=== PATIENT | male | born 1945 | race Caucasian/White ===

== ENCOUNTER → 2019-10-25 | Emergency (ER) | payer MEDICARE ==
[~2019-10-25] VITALS: Ht 193 cm; Wt 104.3 kg
[~2019-10-25] MED LIST: LIPITOR40 MG PO; LISINOPRIL20 MG PO
--- NOTE | 2019-10-26 06:46 | EKG ---
[facility] [address] [place], [place] [address] Signed Sinus tachycardia with 2nd degree AV block (Mobitz I) Right bundle branch block Left anterior fascicular block Bifascicular block Septal infarct , age undetermined Abnormal ECG No previous ECGs available Confirmed by TSERING FABIAN MD ([id number]) on 10/26/2019 6:46:36 AM Electronically Signed By: TSERING FABIAN MD 10/26/19 0646 PATIENT NAME: DIANA LOWERY Electrocardiogram DATE OF : 41 PHYSICIAN: TSERING FABIAN MD REPORT #: [id number] REPORT IS CONFIDENTIAL AND NOT TO BE RELEASED WITHOUT AUTHORIZATION
--- NOTE | 2019-10-26 06:47 | EKG ---
[facility] [address] [place] [address] Signed Sinus bradycardia with 1st degree AV block with premature supraventricular complexes Left axis deviation Right bundle branch block Minimal voltage criteria for LVH, may be normal variant Septal infarct (cited on or before 25-OCT-2019) Abnormal ECG When compared with ECG of 25-OCT-2019 23:56, (Unconfirmed) premature supraventricular complexes are now present Sinus rhythm is no longer with 2nd degree AV block (Mobitz I) Vent. rate has decreased BY 31 BPM Questionable change in initial forces of Septal leads Confirmed by TSERING FABIAN MD ([id number] on 10/26/2019 6:47:16 AM Electronically Signed By: TSERING FABIAN MD 10/26/19 0647 PATIENT NAME: DIANA LOWERY Electrocardiogram DATE OF : 41 PHYSICIAN: TSERING FABIAN MD REPORT #: [id number] REPORT IS CONFIDENTIAL AND NOT TO BE RELEASED WITHOUT AUTHORIZATION
== END ==
LOC: ED 23:47
DX: I21.4 Non-ST elevation (NSTEMI) myocardial infarction (principal); Z87.891 Personal history of nicotine dependence; Z79.899 Other long term (current) drug therapy
CPT/HCPCS: 71045; 71046; 80053; 83735; 84484; 85025; 93005; 93010; 99285-25

== ENCOUNTER 2019-12-03 07:41 | Emergency (ER) | payer MEDICARE ==
[~2019-12-03] VITALS: Ht 193 cm; Wt 104.3 kg
--- OUTSIDE RECORDS SUMMARY | ~2019-12-03 | XMS | Clinical Summary ---
Demographics + + + | Address | [address] | | | [place] [address] | + + + | Home Phone | | + + + | Preferred Language | Unknown | + + + | Marital Status | Unknown | + + + | Gnosticism Affiliation | 1073 | + + + | Race | Unknown | + + + | Ethnic Group | Unknown | + + + Author + + + | Author | [facility] | | | and [place] | + + + | Organization | [facility] | | | and [place] | + + + | Address | Unknown | + + + | Phone | Unavailable | + + + Support + + + + + | Name | Relationship | Address | Phone | + + + + + | Nixon Bello | ECON | [address] | | | | | [place] | | | | | [address] | | + + + + + Care Team Providers + +------+ + | Care Cardiothoracic Surgeon Name | Role | Phone | + +------+ + | Trell Osborne MD | PCP | | + +------+ + Allergies No Known Allergies Medications + + + +---------+------+------+-------+ | Medication | Sig | Dispensed | Refills | Star | End | Statu | | | | | | t | Date | s | | | | | | Date | | | + + + +---------+------+------+-------+ | aspirin 81 mg | Chew and swallow 1 | 30 | 3 | 05/2 | | Activ | | chewable tablet | tablet Daily. | tablet | | 5/20 | | e | | | | | | 20 | | | + + + +---------+------+------+-------+ | atorvaSTATin | Take 1 tablet by | 30 | 3 | 05/2 | | Activ | | (LIPITOR) 80 MG | mouth nightly. | tablet | | 5/20 | | e | | tablet | | | | 20 | | | + + + +---------+------+------+-------+ | clopidogrel | Take 1 tablet by | 30 | 3 | 05/2 | | Activ | | (PLAVIX) 75 mg | mouth Daily. | tablet | | 5/20 | | e | | tablet | | | | 20 | | | + + + +---------+------+------+-------+ | amLODIPine | Take 1 tablet by | 30 | 3 | 05/2 | | Activ | | (NORVASC) 10 MG | mouth Daily. | tablet | | 5/20 | | e | | tablet | | | | 20 | | | + + + +---------+------+------+-------+ Active Problems + + + | Problem | Noted Date | + + + | NSTEMI (non-ST elevated myocardial infarction) | 10/26/2019 | + + + | Essential hypertension | 10/26/2019 | + + + | Other hyperlipidemia | 10/26/2019 | + + + | Alzheimer's dementia without behavioral disturbance | 10/26/2019 | + + + Encounters +--------+ + + + + | Date | Type | Specialty | Care Team | Description | +--------+ + + + + | 11/04/ | Telephone | Cardiology | Diego Garg MD | | | 2019 | | | | | +--------+ + + + + | 10/31/ | Telephone | Cardiology | Diego Garg MD | Other (medication | | 2019 | | | | and bruising) | +--------+ + + + + | 10/29/ | Imaging | Radiology | Damaris, | | | 2019 | Exam | | MD Stephania | | +--------+ + + + + | 10/29/ | Imaging | Radiology | Provider, | | | 2019 | Exam | | MD Stephania | | +--------+ + + + + | 10/28/ | Telephone | Cardiology | Diego Garg MD | Other (plan of care) | | 2019 | | | | | +--------+ + + + + | 10/26/ | Surgery | Cardiology | Diego Garg MD | CV COR ANGIO | 2019 | | | | | +--------+ + + + + 10/25/ | Hospital | Critical Care | Diogo, | NSTEMI (non-ST | | 2019 - | Encounter | Medicine | MD Forest Sr, | elevated myocardial | | | | | Diego Daniel MD | infarction) (HCC) | | 10/27/ | | | | (Primary Dx); Other | 2019 | | | | hyperlipidemia; | | | | | | Essential | | | | | | hypertension; | | | | | | Alzheimer's dementia | | | | | | without behavioral | | | | | | disturbance, | | | | | | unspecified timing | | | | | | of dementia onset | | | | | | (HCC) | +--------+ + + + + from Last 3 Months Social History + +-------+ +--------+------+ | Tobacco Use | Types | Packs/Day | Years | Date | | | | | Used | | + +-------+ +--------+------+ | Former Smoker | | | | | + +-------+ +--------+------+ + +---+---+---+ | Smokeless Tobacco: | | | | | Never Used | | | | + +---+---+---+ + + +---------+ + | Alcohol Use | Drinks/Week | oz/Week | Comments | + + +---------+ + | Not Currently | | | | + + +---------+ + + + + | Sex Assigned at | Date Recorded | | | | + + + | Not on file | | + + + Last Filed Vital Signs + + + + + | Vital Sign | Reading | Time Taken | Comments | + + + + + | Blood Pressure | 149/71 | 10/28/2019 11:34 AM | | | | | PDT | | + + + + + | Pulse | 50 | 10/28/2019 7:42 AM | | | | | PDT | | + + + + + | Temperature | 36.4 C (97.5 F) | 10/28/2019 11:34 AM | | | | | PDT | | + + + + + | Respiratory Rate | 18 | 10/28/2019 7:42 AM | | | | | PDT | | + + + + + | Oxygen Saturation | 96% | 10/28/2019 11:34 AM | | | | | PDT | | + + + + + | Inhaled Oxygen | - | - | | | Concentration | | | | + + + + + | Weight | 94.5 kg (208 lb 5.4 | 10/28/2019 3:46 AM | | | | oz) | PDT | | + + + + + | Height | - | - | | + + + + + | Body Mass Index | - | - | | + + + + + Plan of Treatment + + + + + | Health Maintenance | Due Date | Last | Comments | | | | Done | | + + + + + | Vaccine: | | | | | Pneumococcal 65+ (1 | 8 | | | | of 1 - PPSV23) | | | | + + + + + | Vaccine: Zoster (2 | | 04/22/20 | | | of 3) | 4 | 13 | | + + + + + | Adult Annual | | | | | Wellness Visit | 0 | | | + + + + + | Vaccine: | | 08/18/19 | | | Dtap/Tdap/Td (3 - | 8 | 18, | | | Td) | | 02/24/20 | | | | | 07 | | + + + + + | Vaccine: Influenza | Completed | 03/06/20 | | | | | 19, | | | | | 07/04/19 | | | | | 19, | | | | | 02/23/20 | | | | | 17, | | | | | Addition | | | | | al | | | | | history | | | | | exists | | + + + + + Implants + +-------+------+ +--------+--------+--------+ | Implanted | Type | Area | Manufacture | Device | Shelf | Model | | | | | r | | Expira | / | | | | | | Identi | tion | Serial | | | | | | fier | Date | / Lot | + +-------+------+ +--------+--------+--------+ | Stent Kevin Synergy Mr 3.0 X 20 | Stent | | [place] | [id number] | 02/03/ | [id number] | | - [id number]: Qty: | | | SCIENTIFIC | [id number] | 2020 | [id number] | | 1 on 10/27/2019 by [facility], | | | TAM - BSCI | 76 | | 00 / | | Diego Daniel MD at [facility] | | | | | | /[id number] | | [facility] | | | | | | [facility] | | [facility] | | | | | | | + +-------+------+ +--------+--------+--------+ Procedures + +--------+ + + + | Procedure Name | Priori | Date/Time | Associated Diagnosis | Comments | | | ty | | | | + +--------+ + + + | ECG - EXTERNAL SCAN | | 11/01/2019 | | Results for this | | | | 12:00 AM | | procedure are in the | | | | PDT | | results section. | + +--------+ + + + | ECG 12 LEAD | Routin | 10/28/2019 | | Results for this | | | e | 4:37 AM | | procedure are in the | | | | PDT | | results section. | + +--------+ + + + | CBC NO DIFFERENTIAL | Routin | 10/28/2019 | | Results for this | | | e | 3:34 AM | | procedure are in the | | | | PDT | | results section. | + +--------+ + + + | BASIC METABOLIC | Routin | 10/28/2019 | | Results for this | | PANEL | e | 3:34 AM | | procedure are in the | | | | PDT | | results section. | + +--------+ + + + | ECG 12 LEAD | Routin | 10/27/2019 | | Results for this | | | e | 3:09 PM | | procedure are in the | | | | PDT | | results section. | + +--------+ + + + | CV CARDIAC PROCEDURE | Routin | 10/27/2019 | | Results for this | | | e | 12:39 PM | | procedure are in the | | | | PDT | | results section. | + +--------+ + + + | CV CARDIAC PROCEDURE | Routin | 10/27/2019 | | Results for this | | | e | 12:39 PM | | procedure are in the | | | | PDT | | results section. | + +--------+ + + + | CV CARDIAC PROCEDURE | Routin | 10/27/2019 | | Results for this | | | e | 12:39 PM | | procedure are in the | | | | PDT | | results section. | + +--------+ + + + | CV CARDIAC PROCEDURE | Routin | 10/27/2019 | | Results for this | | | e | 12:39 PM | | procedure are in the | | | | PDT | | results section. | + +--------+ + + + | POC ACTIVATED | Routin | 10/27/2019 | | Results for this | | CLOTTING TIME ISTAT | e | 12:12 PM | | procedure are in the | | | | PDT | | results section. | + +--------+ + + + | PROTIME INR | Routin | 10/27/2019 | | Results for this | | | e | 8:10 AM | | procedure are in the | | | | PDT | | results section. | + +--------+ + + + | LVEF VALUE | Routin | 10/27/2019 | | Results for this | | | e | | | procedure are in the | | | | | | results section. | + +--------+ + + + | TROPONIN I | Routin | 10/26/2019 | | Results for this | | | e | 9:53 AM | | procedure are in the | | | | PDT | | results section. | + +--------+ + + + | ECG 12 LEAD | Routin | 10/26/2019 | | Results for this | | | e | 7:37 AM | | procedure are in the | | | | PDT | | results section. | + +--------+ + + + | MAGNESIUM | Add-On | 10/26/2019 | | Results for this | | | | 5:25 AM | | procedure are in the | | | | PDT | | results section. | + +--------+ + + + | COMPREHENSIVE | Add-On | 10/26/2019 | | Results for this | | METABOLIC PANEL | | 5:25 AM | | procedure are in the | | | | PDT | | results section. | + +--------+ + + + | HEMOGLOBIN A1C | Routin | 10/26/2019 | | Results for this | | | e | 5:25 AM | | procedure are in the | | | | PDT | | results section. | + +--------+ + + + | LIPID PANEL | Routin | 10/26/2019 | | Results for this | | | e | 5:25 AM | | procedure are in the | | | | PDT | | results section. | + +--------+ + + + | TROPONIN I | Routin | 10/26/2019 | | Results for this | | | e | 5:25 AM | | procedure are in the | | | | PDT | | results section. | + +--------+ + + + | XR CHEST 2 VIEWS | Routin | 10/26/2019 | | Results for this | | | e | 12:05 AM | | procedure are in the | | | | PDT | | results section. | + +--------+ + + + | XR CHEST 1 VIEW | Routin | 10/26/2019 | | Results for this | | | e | 12:00 AM | | procedure are in the | | | | PDT | | results section. | + +--------+ + + + from Last 3 Months Results ECG - EXTERNAL SCAN (11/01/2019 12:00 AM PDT) + + + | Narrative | Performed At | + + + | Ordered by an | | | unspecified provider. | | + + + ECG 12 lead (10/28/2019 4:37 AM PDT)Only the most recent of 3 results within the time jayy od is included. + + + + + + | Component | Value | Ref Range | Performed | Pathologist | | | | | At | Signature | + + + + + + | VENTRICULAR | 58 | BPM | [facility] | | | RATE EKG | | | | | + + + + + + | ATRIAL RATE | 68 | BPM | [facility] | | + + + + + + | QRS | 148 | ms | [facility] | | | DURATION | | | | | + + + + + + | Q-T | 486 | ms | [facility] | | | INTERVAL | | | | | + + + + + + | Q-T | 477 | ms | [facility] | | | INTERVAL | | | | | | (CORRECTED) | | | | | + + + + + + | QRS AXIS | -65 | degrees | [facility] | | + + + + + + | T AXIS | 12 | degrees | [facility] | | + + + + + + | INTERPRETAT | Sinus rhythm with 2nd | | [facility] | | | ION TEXT | degree AV block (Mobitz | | | | | | I)Right bundle branch | | | | | | blockLeft anterior | | | | | | fascicular blockAbnormal | | | | | | ECGWhen compared with | | | | | | ECG of 27-OCT-2019 | | | | | | 15:09, (Unconfirmed)T | | | | | | wave inversion now | | | | | | evident in Inferior | | | | | | leadsConfirmed by | | | | | | BRISEIDA SHAH MD ([id number]) | | | | | | on 10/28/2019 6:50:08 AM | | | | + + + + + + + + | Specimen | + + | | + + + + + | Narrative | Performed At | + + + | | | + + + + +---------+ + + | Performing | Address | City/State/Zipcode | Phone Number | | Organization | | | | + +---------+ + + | [facility] | | | | + +---------+ + + CBC no Differential (10/28/2019 3:34 AM PDT) + +-------+ + + + | Component | Value | Ref Range | Performed | Pathologist | | | | | At | Signature | + +-------+ + + + | WBC | 10.4 | 4.0 - 11.0 K/uL | [facility] | | | | | | [facility] | | | | | | [facility] | | | | | | [facility] - | | | | | | LABORATORY | | + +-------+ + + + | RBC | 5.04 | 4.30 - 5.70 | [facility] | | | | | M/uL | [facility] | | | | | | MED[facility] | | | | | | CENTER - | | | | | | LABORATORY | | + +-------+ + + + | Hemoglobin | 14.8 | 13.5 - 18.0 | [facility] | | | | | g/dL | [facility] | | | | | | MEDICAL | | | | | | CENTER - | | | | | | LABORATORY | | + +-------+ + + + | Hematocrit | 45.7 | 40.0 - 51.0 % | [facility] | | | | | | [facility] | | | | | | [facility]ICAL | | | | | | CENTER - | | | | | | LABORATORY | | + +-------+ + + + | MCV | 90.7 | 83.0 - 101.0 fL | [facility] | | | | | | [facility] | | | | | | [facility]ICAL | | | | | | CENTER - | | | | | | LABORATORY | | + +-------+ + + + | MCH | 29.4 | 28.0 - 35.0 pg | [facility] | | | | | | [facility] | | | | | | [facility]ICAL | | | | | | CENTER - | | | | | | LABORATORY | | + +-------+ + + + | MCHC | 32.4 | 32.0 - 36.0 | [facility] | | | | | g/dL | [facility] | | | | | | MEDICAL | | | | | | CENTER - | | | | | | LABORATORY | | + +-------+ + + + | RDW-CV | 13.4 | <15.0 % | [facility] | | | | | | [facility] | | | | | | [facility]ICAL | | | | | | CENTER - | | | | | | LABORATORY | | + +-------+ + + + | RDW-SD | 45.2 | 35.1 - 46.3 fL | [facility] | | | | | | [facility] | | | [facility] | | [facility] | | | | | | CENTER - | | | | | | LABORATORY | | + +-------+ + + + | Platelet | 191 | 140 - 440 K/uL | [facility] | | | Count | | | [facility] | | | | | | MEDICAL | | | | | | CENTER - | | | | | | LABORATORY | | + +-------+ + + + | MPV | 12.2 | 6.5 - 12.4 fL | [facility] | | | | | | [facility] | | | | | | [facility] | | | | | | CENTER - | | | | | | LABORATORY | | + +-------+ + + + | % nRBC | 0 | 0 - 2 per 100 | [facility] | | | | | WBCs | [facility] | | | | | | [facility]ICAL | | | | | | CENTER - | | | | | | LABORATORY | | + +-------+ + + + | Absolute | 0.00 | 0.00 - 0.01 | [facility] | | | nRLE[facility] | | K/uL | [facility] | | | | | | MEDICAL | | | | | | CENTER - | | | | | | LABORATORY | | + +-------+ + + + + + | Specimen | + + | Blood | + + + + + + + | Performing | Address | City/State/Zipcode | Phone Number | | Organization | | | | + + + + + | [facility] | [address] | [place] | [phone] | | [facility] | | [address] | | | - LABORATORY | | | | + + + + + Basic Metabolic Panel (10/28/2019 3:34 AM PDT) + + + + + + | Component | Value | Ref Range | Performed | Pathologist | | | | | At | Signature | + + + + + + | Na | 140 | 136 - 145 | [facility] | | | | | mmol/L | [facility] | | | | | | MEDICAL | | | | | | CENTER - | | | | | | LABORATORY | | + + + + + + | K | 4.0 | 3.4 - 5.1 | [facility] | | | | | mmol/L | [facility] | | | | | | MEDICAL | | | | | | CENTER - | | | | | | LABORATORY | | + + + + + + | Cl | 103 | 98 - 107 mmol/L | [facility] | | | | | | [facility] | | | | | | MEDICAL | | | | | | CENTER - | | | | | | LABORATORY | | + + + + + + | CO2 | 29 | 20 - 31 mmol/L | [facility] | | | | | | [facility] | | | | | | MEDICAL | | | | | | CENTER - | | | | | | LABORATORY | | + + + + + + | Anion Gap | 8 | 3 - 16 mmol/L | [facility] | | | | | | [facility] | | | | | | MEDICAL | | | | | | CENTER - | | | | | | LABORATORY | | + + + + + + | Glucose | 91 | 60 - 106 mg/dL | [facility] | | | | | | [facility] | | | | | | MEDICAL | | | | | | CENTER - | | | | | | LABORATORY | | + + + + + + | BUN | 16 | 9 - 23 mg/dL | [facility] | | | | | | [facility] | | | | | | MEDICAL | | | | | | CENTER - | | | | | | LABORATORY | | + + + + + + | Creatinine | 1.08 | 0.70 - 1.30 | [facility] | | | | | mg/dL | [facility] | | | | | | MEDICAL | | | | | | CENTER - | | | | | | LABORATORY | | + + + + + + | eGFR if not | >60Comment: GLOMERULAR | >=60 | [facility] | | | | FILTRATION | mL/min/1.73m2 | [facility] | | | DJ[facility] | RATE,ESTIMATED | | MEDICAL | | | | mL/min/1.92b4Niml than | | CENTER - | | | | 60 Chronic kidney | | LABORATORY | | | | disease,if found over a | | | | | | 3-month period.Less than | | | | | | 15 Kidney failureFor | | | | | | | | | | | | Americans,multiply the | | | | | | calculated GFR by 1.21. | | | | | | | | | | + + + + + + | Calcium | 9.4 | 8.7 - 10.4 | [facility] | | | | | mg/dL | [facility] | | | | | | MEDICAL | | | | | | CENTER - | | | | | | LABORATORY | | + + + + + + | BUN/Creatin | 14.8 | | [facility] | | | ine Ratio | | | [facility] | | | | | | MEDICAL | | | | | | CENTER - | | | | | | LABORATORY | | + + + + + + + + | Specimen | + + | Blood | + + + + + + + | Performing | Address | City/State/Zipcode | Phone Number | | Organization | | | | + + + + + | [facility] | [address] | [place] | [phone] | | [facility] | | [address] | | | - LABORATORY | | | | + + + + + CV CARDIAC PROCEDURE (10/27/2019 12:39 PM PDT) + +-------+ + + + | Component | Value | Ref Range | Performed | Pathologist | | | | | At | Signature | + +-------+ + + + | LVEF-LVGRAM | 50 | % | [facility] | | | CARDIAC | | | | | | CATH | | | | | + +-------+ + + + + + | Specimen | + + | | + + + + + | Narrative | Performed At | + + + | Patient | [facility] | | admitted with chest pains and increasing troponins. No associated | | | EKG changes. He does have some second-degree heart block. Radial | | | approach was used. Patient had mild irregularity and left dominant | | | system. 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 Left ventriculogram showed normal LV | | | function. LVEDP was elevated to high 20s by report. Intervention | | | using a 305 20 Synergy postdilated with a 3 5 NC balloon to 0%. | | | There is transient distal slow flow post deployment of the stent | | | resolved with medications. She had conscious sedation achieved with | | | medications administered by the [employer] Helper nurse under my supervision. | | | TR band was used for hemostasis the radial access site. No | | | complications encountered. For additional detail as to the | | | procedures performed and the equipment that was utilized, please refer | | | to the Procedure Log. | | | | | | | | |For additional detail as to the procedures performed and the equipment | | |that was utilized, please refer to the Procedure Log. | | | | | | | | | | | | | | | | | | | | | | | | | | | | | | | | | | | + + + + +---------+ + + | Performing | Address | City/State/Zipcode | Phone Number | | Organization | | | | + +---------+ + + | [facility] | | | | + +---------+ + + POC ACT (10/27/2019 12:12 PM PDT) + + + + + + | Component | Value | Ref Range | Performed | Pathologist | | | | | At | Signature | + + + + + + | Activated | >400 (HH) | 125 - 175 | [facility] | | | Clotting | | second(s) | [facility] | | | Time, POC | | | MEDICAL | | | | | | CENTER - | | | | | | LABORATORY | | + + + + + + + + | Specimen | + + | | + + + + + + + | Performing | Address | City/State/Zipcode | Phone Number | | Organization | | | | + + + + + | [facility] | [address] | [place] | [phone] | | [facility] | | [address] | | | - LABORATORY | | | | + + + + + Chadime INR (10/27/2019 8:10 AM PDT) + + + + + + | Component | Value | Ref Range | Performed | Pathologist | | | | | At | Signature | + + + + + + | Prothrombin | 14.2 (H) | 11.3 - 13.9 | [facility] | | | Time | | seconds | [facility] | | | | | | MEDICAL | | | | | | CENTER - | | | | | | LABORATORY | | + + + + + + | INR | 1.0Comment: Usual Oral | 0.9 - 1.1 | [facility] | | | | Anticoagulation Range: | | [facility] | | | | 2.0 - 3.0High | | MEDICAL | | | | Level Oral | | CENTER - | | | | Anticoagulation Range: | | LABORATORY | | | | 2.5 - 3.5 | | | | + + + + + + + + | Specimen | + + | Blood | + + + + + + + | Performing | Address | City/State/Zipcode | Phone Number | | Organization | | | | + + + + + | [facility] | [address] | [place] | [phone] | | [facility] | | [address] | | | - LABORATORY | | | | + + + + + LVEF VALUE (10/27/2019) + +-------+ + + + | Component | Value | Ref Range | Performed | Pathologist | | | | | At | Signature | + +-------+ + + + | LVEF-LVGRAM | 50 | % | | | | CARDIAC | | | | | | CATH | | | | | + +-------+ + + + Troponin I (10/26/2019 9:53 AM PDT)Only the most recent of 2 results within the time perio d is included. + + + + + + | Component | Value | Ref Range | Performed | Pathologist | | | | | At | Signature | + + + + + + | Troponin I | 2.20 ()Comment: | <0.06 ng/mL | [facility] | | | | Comment:Reference | | [facility] | | | | Ranges: 0.00-0.06 = | | MEDICAL | | | | NORMAL >0.06 = | | CENTER - | | | | SUSPICIOUS FOR | | LABORATORY | | | | MYOCARDIAL DAMAGE NOTE: | | | | | | Values greater than | | | | | | 0.78 ng/mL have been | | | | | | shown to be strongly | | | | | | associated with acute | | | | | | myocardial infarction. | | | | | | The [employer] | | | | | | Cardiology (ACC) | | | | | | recommends a decision | | | | | | limit of 0.06 ng/mL for | | | | | | this assay. Results | | | | | | greater than 0.06 can | | | | | | reflect a pre-infarct | | | | | | acute coronary syndrome, | | | | | | but can also reflect | | | | | | myocardial necrosis or | | | | | | injury that is not due | | | | | | to coronary artery | | | | | | disease. Some of these | | | | | | causes are sepsis, | | | | | | hypocolemia, atrial | | | | | | fibrillation, heart | | | | | | failure, pulmonary | | | | | | embolism, myocarditis, | | | | | | myocardial contusion, | | | | | | and renal failure. The | | | | | | diagnosis of myocardial | | | | | | infarction should be | | | | | | based on a combination | | | | | | of the patient's | | | | | | clinical presentation | | | | | | and the clinical | | | | | | laboratory test results | | | | | | (especially serial | | | | | | troponin levels). | | | | | | Critical Result called | | | | | | to and read back by | | | | | | Artur Andrew RN on | | | | | | 10/26/2019 at 10:27 AM by | | | | | | Yuliya Del Real. | | | | + + + + + + + + | Specimen | + + | Blood | + + + + + + + | Performing | Address | City/State[facility] | Phone Number | | Organization | | | | + + + + + | [facility] | [address] | [place] | [phone] | | [facility] | | [address] | | | - LABORATORY | | | | + + + + + Lipid Panel (10/26/2019 5:25 AM PDT) + +--------+ + + + | Component | Value | Ref Range | Performed | Pathologist | | | | | At | Signature | + +--------+ + + + | Triglycerid | 42 | <=150 mg/dL | [facility] | | | es | | | [facility] | | | | | | [facility] | | | | | | CENTER - | | | | | | LABORATORY | | + +--------+ + + + | Cholesterol | 186 | <=200 mg/dL | [facility] | | | | | | [facility] | | | | | | MEDICAL | | | | | | CENTER - | | | | | | LABORATORY | | + +--------+ + + + | HDL | 68 (H) | 40 - 60 mg/dL | [facility] | | | | | | [facility] | | | | | | MEDICAL | | | | | | CENTER - | | | | | | LABORATORY | | + +--------+ + + + | Chol/HDL | 2.7 | | [facility] | | | Ratio | | | [facility] | | | | | | MEDICAL | | | | | | CENTER - | | | | | | LABORATORY | | + +--------+ + + + | LDL, | 110 | <=130 mg/dL | [facility] | | | Calculated | | | [facility] | | | | | | MEDICAL | | | | | | CENTER - | | | | | | LABORATORY | | + +--------+ + + + + + | Specimen | + + | Blood | + + + + + + + | Performing | Address | City/State/Zipcode | Phone Number | | Organization | | | | + + + + + | [facility] | [address] | [place] | [phone] | | [facility] | | [address] | | | - LABORATORY | | | | + + + + + Magnesium (10/26/2019 5:25 AM PDT) + +-------+ + + + | Component | Value | Ref Range | Performed | Pathologist | | | | | At | Signature | + +-------+ + + + | Magnesium | 2.0 | 1.6 - 2.6 mg/dL | [facility] | | [facility] | | | | | | [facility] - | | | | | | LABORATORY | | + +-------+ + + + + + | Specimen | + + | Blood | + + + + + + + | Performing | Address | City/State/Zipcode | Phone Number | | Organization | | | | + + + + + | [facility] | [address] | [place] | [phone] | | [facility] | | [address] | | | - LABORATORY | | | | + + + + + Hemoglobin A1C (10/26/2019 5:25 AM PDT) + +-------+ + + + | Component | Value | Ref Range | Performed | Pathologist | | | | | At | Signature | + +-------+ + + + | Hemoglobin | 5.6 | 4.3 - 6.0 % | [facility] | | | A1c | | | [facility] | | | | | | [facility] | | | | | | CENTER - | | | | | | LABORATORY | | + +-------+ + + + | Estimated | 114 | mg/dL | [facility] | | | Average | | | [facility] | | | Glucose | | | MEDICAL | | | | | | CENTER - | | | | | | LABORATORY | | + +-------+ + + + + + | Specimen | + + | Blood | + + + + + + + | Performing | Address | City/State/Zipcode | Phone Number | | Organization | | | | + + + + + | [facility] | [address] | [place] | [phone] | | [facility] | | [address] | | | - LABORATORY | | | | + + + + + Comprehensive Metabolic Panel (10/26/2019 5:25 AM PDT) + + + + + + | Component | Value | Ref Range | Performed | Pathologist | | | | | At | Signature | + + + + + + | Na | 140 | 136 - 145 | [facility] | | | | | mmol/L | [facility] | | | | [facility] - | | | | | | LABORATORY | | + + + + + + | K | 4.0 | 3.4 - 5.1 | [facility] | | | | | mmol/L | [facility] | | | | | | [facility] | | | | | | [facility] - | | | | | | LABORATORY | | + + + + + + | Cl | 105 | 98 - 107 mmol/L | [facility] | | | | | | [facility] | | | | | | [facility] | | | | | | [facility] - | | | | | | LABORATORY | | + + + + + + | CO2 | 26 | 20 - 31 mmol/L | [facility] | | | | | | [facility] | | | | | | [facility] | | | | | | [facility] - | | | | | | LABORATORY | | + + + + + + | Anion Gap | 9 | 3 - 16 mmol/L | [facility] | | | | | | [facility] | | | | | | [facility] | | | | | | C[facility] - | | | | | | LABORATORY | | + + + + + + | Glucose | 102 | 60 - 106 mg/dL | [facility] | | | | | | [facility] | | | | | | [facility] | | | | | | [facility] - | | | | | | LABORATORY | | + + + + + + | BUN | 21 | 9 - 23 mg/dL | [facility] | | | | | | [facility] | [facility] | [facility] | | [facility] | | | | | | [facility] - | | | | | | LABORATORY | | + + + + + + | Creatinine | 1.13 | 0.70 - 1.30 | [facility] | | | | | mg/dL | [facility] | | | | | | [facility] | | | | | | CENTER - | | | | | | LABORATORY | | + + + + + + | eGFR if not | >60Comment: GLOMERULAR | >=60 | [facility] | | | | FILTRATION | mL/min/1.73m2 | [facility] | | | [facility] | RATE,ESTIMATED | | MEDICAL | | | | mL/min/1.47j2Shmc than | | CENTER - | | | | 60 Chronic kidney | | LABORATORY | | | | disease,if found over a | | | | | | 3-month period.Less than | | | | | | 15 Kidney failureFor | | | | | | | | | | | | Americans,multiply the | | | | | | calculated GFR by 1.21. | | | | | | | | | | + + + + + + | Calcium | 10.1 | 8.7 - 10.4 | [facility] | | | | | mg/dL | [facility] | | [facility] | [facility] | | | | | | CENTER - | | | | | | LABORATORY | | + + + + + + | Albumin | 4.3 | 3.2 - 4.8 g/dL | [facility] | | | | | | [facility] | | | | | | [facility] | | | | | | CENTER - | | | | | | LABORATORY | | + + + + + + | Bilirubin | 0.6 | 0.3 - 1.2 mg/dL | [facility] | | | Total | | | [facility] | | | | | | [facility] | | | | | | CENTER - | | | | | | LABORATORY | | + + + + + + | Total | 7.2 | 5.7 - 8.2 g/dL | [facility] | | | Protein | | | [facility] | | | | | | MEDICAL | | | | | | CENTER - | | | | | | LABORATORY | | + + + + + + | AST | 20 | 0 - 34 U/L | [facility] | | | | | | [facility] | | | | | | [facility] | | | | | | CENTER - | | | | | | LABORATORY | | + + + + + + | ALT | 18 | 10 - 49 U/L | [facility] | | | | | | [facility] | | | | | | [facility] | | | | | | CENTER - | | | | | | LABORATORY | | + + + + + + | Alkaline | 69 | 46 - 116 U/L | [facility] | | | Phosphatase | | | [facility] | | | | | | [facility]ICAL | | | | | | CENTER - | | | | | | LABORATORY | | + + + + + + | Globulin | 2.9 | 2.1 - 3.8 g/dL | [facility] | | | | | | [facility] | | | | | | [facility]ICAL | | | | | | CENTER - | | | | | | LABORATORY | | + + + + + + | Albumin/Yi | 1.5 | 0.8 - 1.9 | [facility] | | | bulin Ratio | | | [facility] | | | | | | [facility]ICAL | | | | | | CENTER - | | | | | | LABORATORY | | + + + + + + | BUN/Creatin | 18.6 | | [facility] | | | ine Ratio | | | [facility] | | | | | | MEDICAL | | | | | | CENTER - | | | | | | LABORATORY | | + + + + + + + + | Specimen | + + | Blood | + + + + + + + | Performing | Address | City/State/Zipcode | Phone Number | | Organization | | | | + + + + + | [facility] | [address] | [place] | [phone] | | [facility] | | [address] | | | - LABORATORY | | | | + + + + + XR Chest 2 Vws (10/26/2019 12:05 AM PDT) + + | Specimen | + + | | + + + + + | Narrative | Performed At | + + + | External films for comparison only | [facility] | | | | | No results will be in the chart. | | + + + + +---------+ + + | Performing | Address | City/State/Zipcode | Phone Number | | Organization | | | | + +---------+ + + | [facility] | | | | + +---------+ + + XR Chest 1 Vw (10/26/2019 12:00 AM PDT) + + | Specimen | + + | | + + + + + | Narrative | Performed At | + + + | External films for comparison only | [facility] | | | | | No results will be in the chart. | | + + + + +---------+ + + | Performing | Address | City/State/Zipcode | Phone Number | | Organization | | | | + +---------+ + + | [facility] | | | | + +---------+ + + from Last 3 Months Insurance + +--------+ +--------+ +---------+--------+ | Payer | Benefi | Subscriber | Effect | Phone | Address | Type | | | t Plan | ID | sree | | | | | | / | | Dates | | | | | | Group | | | | | | + +--------+ +--------+ +---------+--------+ | [employer] | [place] | [id number] | 06/05/19 | [phone] | | [place] | | | [place] | | 20-Pre | 7 | | re | | | GROUP | | sent | | | | | | HEALTH | | | | | | | | MDCR | | | | | | | | VISITI | | | | | | | | NG | | | | | | | | MEMBER | | | | | | | | S | | | | | | + +--------+ +--------+ +---------+--------+ + +--------+ +--------+ + + | Guarantor Name | Accoun | Relation to | Date | Phone | Billing Address | | | t Type | Patient | of | | | | | | | | | | + +--------+ +--------+ + + | Robin Dumont I | Person | Self [birth year] | [address] | | | al/Fam | | 1945 | [phone] | [place] [address] | | | keagan | | | 6 (Home) | | + +--------+ +--------+ + + Advance Directives + + + + + | Type | Date Recorded | Patient | Explanation | | | | 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
--- OUTSIDE RECORDS SUMMARY | ~2019-12-03 | XMS | Encounter Summary ---
Demographics + + + | Address | [address] | | | [place] [address] | + + + | Home Phone | | + + + | Preferred Language | Unknown | + + + | Marital Status | Unknown | + + + | Mosque Affiliation | 1073 | + + + | Race | Unknown | + + + | Ethnic Group | Unknown | + + + Author + + + | Author | [facility] | | | and [place] | + + + | Organization | [facility] | | | and [place] | + + + | Address | Unknown | + + + | Phone | Unavailable | + + + Support + + + + + | Name | Relationship | Address | Phone | + + + + + | Nixon Bello | ECON | [address] [facility] | | | | | [place] | | | | | [address] | | + + + + + Care Team Providers + +------+ + | Care Detailer [employer]aceuticals Name | Role | Phone | + +------+ + | Trell Osborne MD | PCP | | + +------+ + Encounter Details +--------+ + + + + | Date | Type | Department | Care Team | Description | +--------+ + + + + | 10/29/ | Imaging | [facility] | Provider, | | | 2019 | Exam | [facility] | MD [phone] | | | | | IMAGING [address] | [address] [place] | | | | | [address] [place] | [place] [address] | | | | | [place] [address] | | | | | | [phone] | | | +--------+ + + + + Social History + +-------+ +--------+------+ | Tobacco [...] on file | | + + + documented as of this encounter Plan of Treatment Not on filedocumented as of this encounter Procedures + +--------+ + + + | [...] section. | + +--------+ + + + documented in this encounter Results XR Chest 1 Vw (10/26/2019 12:00 AM [...] | | | + +---------+ + + documented in this encounter Visit Diagnoses Not on filedocumented in this encounter"
--- OUTSIDE RECORDS SUMMARY | ~2019-12-03 | XMS | Encounter Summary ---
Demographics + + + | Address | [address] | | | [place] [address] | + + + | Home Phone | | + + + | Preferred Language | Unknown | + + + | Marital Status | Unknown | + + + | Mormonism Affiliation | 1073 | + + + | Race | Unknown | + + + | Ethnic Group | Unknown | + + + Author + + + | Author | [facility] | | | and [place] | + + + | Organization | [facility] | | | and [place] | + + + | Address | Unknown | + + + | Phone | Unavailable | + + + Support + + + + + | Name | Relationship | Address | Phone | + + + + + | Nixon Bello | ECON | [address] [facility] | | | | | [place] | | | | | [address] | | + + + + + Care Team Providers + +------+ + | Care Preschool Teacher Name | Role | Phone | + [...] | [facility] | MD [address] | | | | | IMAGING [address] | [address] | | | | | [address] [place] | [place] [address] | | | | | [place] [address] | | | | | | [phone] | | | +--------+ + + + [...] documented in this encounter Results XR Chest 2 Vws (10/26/2019 12:05 AM [...]
--- OUTSIDE RECORDS SUMMARY | ~2019-12-03 | XMS | Encounter Summary ---
Demographics + + + | Address | [address] | | | [place] [address] | + + + | Home Phone | | + + + | Preferred Language | Unknown | + + + | Marital Status | Unknown | + + + | Orthodoxy Affiliation | 1073 | + + + | Race | Unknown | + + + | Ethnic Group | Unknown | + + + Author + + + | Author | [facility] | | | and [place] | + + + | Organization | [facility] | | | and [place] | + + + | Address | Unknown | + + + | Phone | Unavailable | + + + Support + + + + + | Name | Relationship | Address | Phone | + + + + + | Nixon Bello | ECON | [address] [facility] | | | | | [place] | | | | | [address] | | + + + + + Care Team Providers + +------+ + | Care Manager Pharmacy Name | Role | Phone | + +------+ + | Trell Osborne MD | PCP | | + +------+ + Reason for Referral Diagnostic/Screening (Routine) + +--------+ + + + + | Status | Reason | Specialty | Diagnoses / | Referred By | Referred To | | | | | Procedures | Contact | Contact | + +--------+ + + + + | Authorized | | Radiology | Diagnoses | Lia Garg | | | | | Heart block | Diego Daniel MD | Electrodiagno | | | | | Procedures | [address] | [address] | | | | | Holter | [address] | [place] | | | | | monitor - [address] | [place], | [place], [place] | | | | | hour | [place] [address] | [address] | | | | | | Phone: | Phone: | | | | | | [phone] | [phone] | | | | | | Fax: | Fax: | | | | | | [phone] | [phone] | + +--------+ + + + + Reason for Visit +--------+--------+ + | Reason | Onset | Comments | | | Date | | +--------+--------+ + | Other | 10/28/ | plan of care | | | 2019 | | +--------+--------+ + Encounter Details +--------+ + + + + | Date | Type | Department | Care Team | Description | +--------+ + + + + | 10/28/ | Telephone | [facility] | Diego Garg MD | Other (plan of care) | | 2019 | | CARDIOLOGY [address] | [address] | | | | | [place], | [place], [place] | | | | | [place] [address] | [address] | | | | | [phone] | | | +--------+ + + + [...] + + documented as of this encounter Functional Status + + + + | Functional Status | Response | Date of Assessment | + + + + | Are you deaf or do you have serious | No | 10/28/2019 | | difficulty hearing? | | | + + + + | Are you blind or do you have serious | No | 10/28/2019 | | difficulty seeing, even when wearing | | | | glasses? | | | + + + + | Do you have serious difficulty walking or | No | 10/28/2019 | | climbing stairs? (5 years old or older) | | | + + + + | Do you have difficulty dressing or bathing? | No | 10/28/2019 | | (5 years old or older) | | | + + + + | Because of a physical, mental, or emotional | Yes | 10/28/2019 | | condition, do you have difficulty doing | | | | errands alone such as visiting a doctor's | | | | office or shopping? [15 years old or | | | | older)] | | | + + + + + + + + | Cognitive Status | Response | Date of Assessment | + + + + | Because of a physical, mental, or emotional | Yes | 10/28/2019 | | condition, do you have serious difficulty | | | | concentrating, remembering, or making | | | | decisions? (5 years old or older) | | | + + + + documented as of this encounter Miscellaneous Notes Telephone Encounter - Deneen Vasquez - 10/30/2019 11:03 AM Otilia spoke with william serrato's son Nixon who is POA. He stated due to patients insurance and being out of network, edison draper has requested patient to be seen by a [employer] Manager they recommend. Per Nixon he will b e setting up an appt soon with a [employer] Manager covered by patients insurance. elephone Encounter - Vanesa Mcelroy RN - 10/29/2019 7:[address] Dr Garg, patient was in the hospital over the we ekend and has been discharged. He will need a follow up with him in the office in about 2 w eeks with holter prior. Holter has been ordered. I will ask PSR's to please coordinate bot h appointments with the patient. ...........................................Vanesa Meclroy RN, on 10/29/19 at 7:31 AM documented in this encounter Plan of Treatment + +------+--------+ + + | Name | Type | Priori | Associated Diagnoses | Order Schedule | | | | ty | | | + +------+--------+ + + | Holter monitor - 48 | ECG | Routin | Heart block | Expected: 10/29/2019 | | hour | | e | | (Approximate), | | | | | | Expires: 10/28/2020 | + +------+--------+ + + documented as of this encounter Visit Diagnoses + + | Diagnosis | + + | Heart block - Primary Conduction disorder, unspecified | + + documented in this encounter"
--- OUTSIDE RECORDS SUMMARY | ~2019-12-03 | XMS | Encounter Summary ---
Demographics + + + | Address | [address] | | | [place] [address] | + + + | Home Phone | | + + + | Preferred Language | Unknown | + + + | Marital Status | Unknown | + + + | Denominational Affiliation | [id number] | + + + | Race | Unknown | + + + | Ethnic Group | Unknown | + + + Author + + + | Author | [facility] | | | and [place] | + + + | Organization | [facility] | | | and [place] | + + + | Address | Unknown | + + + | Phone | Unavailable | + + + Support + + + + + | Name | Relationship | Address | Phone | + + + + + | Nixon Bello | ECON | [address] | | | | | [place] | | | | | [address] | | + + + + + Care Team Providers + +------+ + | Care Locomotive Driver Name | Role | Phone | + +------+ + | Trell Osborne MD | PCP | | + +------+ + Reason for Visit Auth/Cert +--------+--------+ + + + + | Status | Reason | Specialty | Diagnoses / | Referred By | Referred To | | | | | Procedures | Contact | Contact | +--------+--------+ + + + + | | | | Diagnoses | | | | | | | NSTEMI | | | +--------+--------+ + + + + Encounter Details +--------+---------+ + + + | Date | Type | Department | Care Team | Description | +--------+---------+ + + + | 10/26/ | Surgery | [facility] | Diego Garg MD | CV COR ANGIO | | 2019 | | MED CTR [facility] | [address] | | | | | [address] | [place] | | | | | [place] | [phone] | | | | | [id number] | | | | | | [phone] | | | +--------+---------+ + + + Social History + +-------+ [...] + + documented as of this encounter Last Filed Vital Signs + + + + + | Vital Sign | Reading | Time Taken | Comments | + + + + + | Blood Pressure | 162/75 | 10/27/2019 7:11 AM | | | | | PDT | | + + + + + | Pulse | 50 | 10/27/2019 7:11 AM | | | | | PDT | | + + + + + | Temperature | 36.1 C (97 F) | 10/27/2019 7:11 AM | | | | | PDT | | + + + + + | Respiratory Rate | 18 | 10/27/2019 7:11 AM | | | | | PDT | | + + + + + | Oxygen Saturation | 98% | 10/27/2019 7:11 AM | | | | | PDT | | + + + + + | Inhaled Oxygen | - | - | | | Concentration | | | | + + + + + | Weight | 97 kg (213 lb 13.5 | 10/26/2019 9:35 PM | | | | oz) | PDT | | + + + + + | Height | - | - | | + + + + + | Body Mass Index | - | - | | + + + + + documented in this encounter Functional Status + + + [...] + + documented as of this encounter Discharge Summaries Diego Garg MD - 10/28/2019 9:09 AM PDT DISCHARGE SUMMARY PATIENT NAME/: Robin Dumont, (1945) DATE OF ADMISSION: 10/26/2019 DATE OF DISCHARGE: 10/28/2019 ADMITTING DIAGNOSIS: NSTEMI (non-ST elevated myocardial infarction) ([facility]) PRIMARY CARE PROVIDER: Trell Osborne MD DISCHARGE DIAGNOSES: NSTEMI with high-grade mid PDA lesion. 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 Radial approach was used. Patient had mild irregularity and left dominant system. Right c oronary was large and the mid RCA PDA, there is a discrete 90% stenosis. Left ventriculogra m showed normal LV function. LVEDP was elevated to high 20s by report. Intervention using a 305 20 Synergy postdilated with a 3 5 NC balloon to 0%. There is torres sient distal slow flow post deployment of the stent resolved with medications. OTHER FINDINGS OF NOTE: He given a heart block without significant pauses SUMMARY OF HISTORY AND PHYSICAL: Referral from outside hospital and found to have significa nt elevation of troponins. SUMMARIZED HOSPITAL COURSE: Patient is admitted because of chest pains on referral from [facility]. Elevated troponins prompted heart catheterization showed his coronary dise ase that was treated without complications. DISCHARGE EXAM: General: Healthy-appearing gentleman with some memory difficulties. Heart - regular rate and rhythm, S1 and S2 normal, no murmur, rub, or gallop. Lungs - clear to auscultation bilaterally Neurologic - Grossly normal. MEDS: Discharge Medications New Medications Details amLODIPine 10 MG tablet Take 1 tablet by mouth Daily. aka: NORVASC aspirin 81 mg chewable tablet Chew and swallow 1 tablet Daily. atorvaSTATin 80 MG tablet Take 1 tablet by mouth nightly. aka: LIPITOR clopidogrel 75 mg tablet Take 1 tablet by mouth Daily. aka: PLAVIX PATIENT INSTRUCTIONS: Activity: Activity as tolerated Diet: cardiac diet Other instructions: Discharge Instructions Alzheimer Disease Alzheimer disease is a brain illness that can happen usually in older adults, but it can al so happen as early as age 40. It is the most common cause of dementia. It is a progressive d isease. This means it gets worse over time. What is Alzheimer disease? Alzheimer disease causes a series of changes to nerves of the brain. Some nerves form into clumps and tangles, and lose some of their connections to other nerves. Healthcare providersdon t fully understand what causes Alzheimer disease. But they thin k these may be some of the causes: Age and family history Certain genes Abnormal protein deposits in the brain Environmental factors Problems with a person s immune system Possibly infections Symptoms of Alzheimer disease The disease causes changes in behavior and thinking known as dementia. The symptoms include : Memory loss Confusion Restlessness Personality and behavior changes Problems with judgment Problems communicating with others Inability to follow directions Lack of emotion Diagnosing Alzheimer disease No single test is able to diagnose Alzheimer disease. Instead healthcare providers use a se [place] of tests to rule out other health conditions. The tests may include: A complete medical history.This may include questions about overall health and past he alth problems. The healthcare provider may ask how well the person can do daily tasks. [facility] provider may ask family or close friends about any changes in behavior or personal ity. Mental status test. This is a test of memory, problem solving, attention, counting, and language. Standard medical tests.These may include blood and urine tests to find possible causes for the problem. Brain imaging tests. CT, MRI, or positron emission tomography (PET) may be used to rul e out other causes of the problem. Treating Alzheimer disease Alzheimer disease has no cure. Instead healthcare providers can help ease some symptoms. Th is can make a person with Alzheimer more comfortable. Treatment can also make it easier for their caregivers to take care of them. Some medicines may help slow the decline of a person s memory, thinking, and language ski lls. They may help with problems of behavior, such as aggression. They can lessen hallucinat ions and delusions. These medicines can work for some but not all people. And they may help for only a limited time. Medicines include: Cholinesterase inhibitors Donepezil Galantamine Rivastigmine Memantine In some cases, behavior problems can be caused by medicine side effects. Talk with the pers on s healthcare provider about all medicines he or she is taking. Keeping healthy For a person with Alzheimer, it s important to stay healthy. Good nutrition and physical and social activity are vital. A calm and well-structured environment will help. Make sure t o keep up with healthcare appointments and managing other health conditions, such as diabete s. Some people benefit from having a refractive surgeon help to prevent weight loss. Caring for someone with Alzheimer A person with Alzheimer will need more caregiving over time. Talk with your healthcare prov ider about caregiving resources. Date Last Reviewed: 09/03/[id number] [employer]. [address] [place] [address]. All righ ts reserved. This information is not intended as a substitute for professional medical care. Always follow your healthcare professional's instructions. Angioplasty and Stent Placement for the Heart What is angioplasty? Angioplasty, also called percutaneous coronary intervention (PCI), is a procedure used to o pen blocked coronary arteries (caused by coronary artery disease). It restores blood flow to the heart muscle without open-heart surgery. Angioplasty can be done in an emergency settin g such as an acute heart attack or in an elective setting when heart disease is strongly eda pected from non-invasive testing. For angioplasty, a special catheter (a long, thin, hollow tube) is inserted into a blood ve ssel and guided to the blocked coronary artery. The catheter has a tiny balloon at its tip. Once the catheter is in place, the balloon is inflated at the narrowed area of the coronary artery. This presses the plaque or blood clot blocking the artery against the sides of the a rtery making more room for blood flow. The use of fluoroscopy (a special type of X-ray that s like an X-ray "movie") helps the d octor find the blockages in the coronary arteries as a contrast dye moves through the arteri es. This is called coronary angiography. The doctor may determine that another type of procedure is necessary. This may include the use of atherectomy (removal of plaque) at the site of the narrowing of the artery. In athere ctomy, there may be tiny blades on a balloon or a rotating tip at the end of the catheter. W hen the catheter reaches the narrowed spot in the artery, the plaque is broken up or cut ramses y to open the artery. Stents Coronary stents are now used in nearly all angioplasty procedures. A stent is a tiny, expan dable, metal mesh coil that is put into the newly-opened area of the artery to help keep the artery from narrowing or closing again. Once the stent has been placed, tissue will start to form over it within a few days after t he procedure. The stent will be completely covered by scar tissue within a month or so. Medi cines called antiplatelets must be taken to decrease the "stickiness" of platelets (special blood cells that clump together to stop bleeding), and to prevent blood clots from forming i nside the stent. Your doctor will give specific instructions on which medicines need to be t aken and for how long. Most stents are coated with medicine to prevent the formation of too much scar tissue insid e the stent. These stents, called drug-eluting stents, or JIMI, release medicine within the b lood vessel that inhibits the overgrowth of tissue within the stent. This helps deter re- na rrowing of the blood vessel. Some stents do not have this medicine coating and are called bare metal stents or BMS. They may have higher rates of stenosis but do not require long-term use of antiplatelet medicine s. This may be the preferred stent in people who are at high risk of bleeding. Because stents can become blocked, it is important for you to talk with your doctor about w hat you need to do if you have chest pain after a stent placement. If scar tissue does form inside the stent, a repeat procedure may be needed. This may be us ing either balloon angioplasty or with a second stent. In some cases, radiation therapy may be given through a catheter placed near the scar tissue to stop the growth of scar tissue an d open up the vessel. This is called brachytherapy. Why might I need angioplasty? Angioplasty is done to restore coronary artery blood flow when the narrowed artery is in a location that can be reached in this manner. Not all coronary artery disease (CAD) can be tr eated with angioplasty. Your doctor will decide the best way to treat your CAD based on your circumstances. What are the risks of angioplasty? Possible risks associated with angioplasty, stenting, atherectomy, and related procedures i nclude, but are not limited to: Bleeding at the site where the catheter is put into the body (usually the groin, wrist, or arm) Blood clot or damage to the blood vessel from the catheter Blood clot within the treated blood vessel Infection at the catheter insertion site Abnormal heart rhythms Heart attack Stroke Chest pain or discomfort Rupture of the coronary artery or complete closing of the coronary artery, requiring ope n-heart surgery Allergic reaction to the contrast dye used Kidney damage from the contrast dye You may want to ask your doctor about the amount of radiation used during the procedure and the risks related to your particular situation.It is a good idea to keep a record of your radiation exposure, such as previous scans and other types of X-rays, so that you can infor m your doctor. Risks associated with radiation exposure may be related to the cumulative num tom of X-rays or treatments over a long period. For some people, having to lie still on the procedure table for the length of the procedure may cause some discomfort or pain. There may be other risks depending on your specific medical condition. Be sure to discuss a ny concerns with your doctor before the procedure. How do I get ready for angioplasty? Your doctor will explain the procedure to you and you can ask questions. You will be asked to sign a consent form that gives your permission to do the procedure. Read the form carefully and ask questions if anything is unclear. Tell your doctor if you have ever had a reaction to any contrast dye, or if you are oumar rgic to iodine. Tell your doctor if you are sensitive to or are allergic to any medicines, latex, tape, and anesthetic agents (local and general). You will need to fast (not eat or drink) for a certain period before the procedure. Your doctor will tell you how long to fast, whether for a few hours or overnight. Tell your doctor if you are or think you could be. Radiation exposure during pr egnancy may lead to defects. Tell your doctor if you have any body piercings on your chest or abdomen (belly). Tell your doctor of all medicines (prescription and [id number]), vitamins, herbs, and supplements that you are taking. Tell your doctor if you have a history of bleeding disorders or if you are taking any an ticoagulant or antiplatelet (blood-thinning) medicines, aspirin, or other medicines that aff ect blood clotting. You may need to stop some of these medicines before the procedure. Howev er, for planned angioplasty procedures, your doctor may want you to continue taking aspirin and antiplatelet medicines, so be sure to ask. Your doctor may request a blood test before the procedure to determine how long it takes your blood to clot. Other blood tests may be done as well. Tell your doctor if you have a pacemaker or other implanted device. You may get a sedative before the procedure to help you relax. Based on your medical condition, your doctor may request other specific preparation. What happens during angioplasty? Angioplasty may be done as part of your stay in a hospital. Procedures may vary depending o n your condition and your doctor's practices. Most people who undergo angioplasty and stent placement are monitored overnight in the hospital. Generally, angioplasty follows this process: 1. You will be asked to remove any jewelry or other objects that may interfere with the pro cedure. You may wear your dentures or hearing aid if you use either of these. 2. You will be asked to remove your clothing and will be given a gown to wear. 3. You will be asked to empty your bladder before the procedure. 4. If there is a lot of hair at the area of the catheter insertion (often the groin area), the hair may be shaved off. 5. An intravenous (IV) line will be started in your hand or arm before the procedure. It wi ll be used for injection of medicine and to give IV fluids, if needed. 6. You will be placed on your back on the procedure table. 7. You will be connected to an electrocardiogram (ECG) monitor that records the electrical activity of your heart and monitors your heart rate using electrodes that stick to your skin . Your vital signs (heart rate, blood pressure, breathing rate, and oxygen level) will be mo nitored during the procedure. 8. There will be several monitor screens in the room, showing your vital signs, the images of the catheter being moved through your body into your heart, and the structures of your he art as the dye is injected. 9. You will get a sedative in your IV to help you relax. However, you will likely stay awak e during the procedure. 10. Your pulses below the catheter insertion site will be checked and marked so that the ci rculation to the limb below the site can easily be checked during and after the procedure. 11. A local anesthetic will be injected into the skin at the insertion site. You may feel s ome stinging at the site for a few seconds after the local anesthetic is injected. 12. Once the local anesthetic has taken effect, a sheath, or introducer, will be put into t he blood vessel (often at the groin). This is a plastic tube through which the catheter will be threaded into the blood vessel and advanced into the heart. 13. The catheter will be threaded through the sheath into the blood vessel. The doctor will advance the catheter through the aorta into the heart. Fluoroscopy (an X-ray movie ) w ill be used to help see the catheter advance into the heart. 14. The catheter will be threaded into the coronary arteries. Once the catheter is in place , contrast dye will be injected through the catheter into your coronary arteries in order to see the narrowed area(s). You may feel some effects when the contrast dye is injected into the IV line. These effects include a flushing sensation, a salty or metallic taste in the mo uth, or a brief headache. These effects usually last only a few moments. 15. Tell your doctor if you feel any breathing trouble, sweating, numbness, itching, nausea or vomiting, chills, or heart palpitations. 16. After the contrast dye is injected, a series of rapid X-ray images of the heart and cor onary arteries will be taken. You may be asked to take in a deep breath and hold it for a fe w seconds during this time. 17. When the doctor locates the narrowed artery, the catheter will be advanced to that loca tion and the balloon will be inflated to open the artery. You may have some chest pain or di scomfort at this point because the blood flow is temporarily blocked by the inflated balloon . Any chest discomfort or pain should go away when the balloon is deflated. However, if you notice any continued discomfort or pain, such as chest pain, neck or jaw pain, back pain, ar m pain, shortness of breath, or breathing trouble, tell your doctor right away. 18. The doctor may inflate and deflate the balloon several times. The decision may be made at this point to put in a stent to keep the artery open. In some cases, the stent may be put into the artery before the balloon is inflated. Then the inflation of the balloon will open the artery and fully expand the stent. 19. The doctor will take measurements, pictures, or angiograms after the artery has been op ened. Once it has been determined that the artery is opened sufficiently, the catheter will be removed. 20. The sheath or introducer is taken out and the insertion site may be closed with a closu re device that uses collagen to seal the opening in the artery, by the use of sutures, or by applying manual pressure over the area to keep the blood vessel from bleeding. Your doctor will decide which method is best for you. 21. If a closure device is used, a sterile dressing will be applied to the site. If manual pressure is used, the doctor (or an housekeeping assistant) will hold pressure on the insertion site so t hat a clot will form on the outside of the blood vessel to prevent bleeding. Once the bleedi ng has stopped, a very tight bandage will be placed on the site. 22. Staff will help you slide from the table onto a stretcher so that you can be taken to [facility] recovery area. NOTE: If the insertion was in the groin, you will not be allowed to bend y our leg for several hours. If the insertion site was in the arm, your arm will be kept elevated on pillows and kept st raight by placing your arm in an arm guard (a plastic arm board designed to immobilize the e lbow joint). In addition, a plastic band (that works like a belt around the waist) may be se cured around your arm near the insertion site. The band will be loosened at given intervals and then removed when your doctor decides the pressure is no longer needed. What happens after angioplasty? In the hospital After the procedure, you may be taken to the recovery room for observation or returned to [facility] hospital room. You will stay flat in bed for several hours after the procedure. A nurse will monitor your vital signs, the insertion site, and circulation and sensation in the affe cted leg or arm. Tell your nurse right away if you feel any chest pain or tightness, or any other pain, as w ell as any feelings of warmth, bleeding, or pain at the insertion site. Bed rest may vary from 2 to 6 hours depending on your specific condition. If your doctor pl aced a closure device, your bed rest may be shorter. In some cases, the sheath or introducer may be left in the insertion site. If so, the bedre st will be last until the sheath is removed. After the sheath is removed, you may be given a light meal. You may feel the urge to urinate often because of the effects of the contrast dye and incre ased fluids. You will need to use a bedpan or urinal while on bed rest so that your affected leg or arm will not be bent. After the specified period of bed rest has been completed, you may get out of bed. The nurs e will help you the first time you get up, and will check your blood pressure while you are lying in bed, sitting, and standing. You should move slowly when getting up to avoid any diz ziness from the long period of bed rest. You may be given pain medicine for pain or discomfort at the insertion site or from having to lie flat and still for a long time. You will be encouraged to drink water and other fluids to help flush the contrast dye from your body. You may go back your usual diet after the procedure, unless your doctor decides otherwise. You will most likely spend the night in the hospital after your procedure. Depending on you r condition and the results of your procedure, your stay may be longer. You will get detaile d instructions for your discharge and recovery period. At home Once at home, monitor the insertion site for bleeding, unusual pain, swelling, abnormal dis coloration, or temperature change. A small bruise is normal. If you notice a constant or lar ge amount of blood at the site that cannot be contained with a small dressing, tell your doc tor. If your doctor used a closure device at your insertion site, you will be given specific inf ormation regarding the type of closure device that was used and how to take care of the site . There will be a small knot, or lump, under the skin at the site. This is normal. The knot should slowly disappear over a few weeks. It will be important to keep the insertion site clean and dry. Your doctor will give you sp ecific bathing instructions. You may be advised not to participate in any strenuous activities. Your doctor will instruc t you about when you can return to work and resume normal activities. Tell your doctor if you have any of the following: Fever or chills Increased pain, redness, swelling, bleeding, or other drainage from the insertion site Coolness, numbness or tingling, or other changes in the affected arm or leg Chest pain or pressure, nausea or vomiting, profuse sweating, dizziness, or fainting Your doctor may give you other instructions after the procedure, depending on your particul ar situation. Next steps Before you agree to the test or the procedure make sure you know: The name of the test or procedure The reason you are having the test or procedure What results to expect and what they mean The risks and benefits of the test or procedure What the possible side effects or complications are When and where you are to have the test or procedure Who will do the test or procedure and what that person s qualifications are What would happen if you did not have the test or procedure Any alternative tests or procedures to think about When and how will you get the results Who to call after the test or procedure if you have questions or problems How much will you have to pay for the test or procedure [id number] [employer] [place] [address]. All righ ts reserved. This information is not intended as a substitute for professional medical care. Always follow your healthcare professional's instructions. Follow-up: In [address] Diego Garg and 1 month with Agustín. Because of heart block patient will have a Holter monitor Blockers none prescribed because of heart block.. Time spent on discharge planning: greater than 30 minutes Portions of this chart may have been created with [employer] voice recognition software. Occasi onal wrong-word or sound-alike substitutions may have occurred due to the inherent pabon itations of voice recognition software. Please read the chart carefully and recognize, using context, where these substitutions have occurred. documented in this encounter Discharge Instructions Instructions Marcella Finney RN - 10/28/2019 Cholesterol Does this test have other names? Total blood cholesterol, serum cholesterol What is this test? This test measures the amount of cholesterol in your blood. This helps your healthcare prov ider figure out your risk for heart disease. Cholesterol is a waxy fat-like substance found in all of your body's cells, where it plays an important role. But your body can have too much cholesterol if you eat the wrong types of foods. These include fried foods and foods with saturated or trans fats. Some health condit ions can also make your cholesterol level too high. If you have too much cholesterol in your blood, it can stick to the benson of the arteries i n your heart(coronary arteries).The extra cholesterol can make your blood vessels narrow er (atherosclerosis). This narrowing makes it harder to get enough blood through your blood vessels. If your heart muscles don't get enough blood, you may be at risk for a heart attack .Cholesterol can also stick to the benson of arteries elsewhere in your body. This can caus e othertypes ofartery diseases. The [employer] recommends that all adults ages 20 and older have their chol esteroland other traditional risk factorschecked every 4 to 6 years.Work with your [facility] provider to find out your risk for cardiovascular disease and stroke. Why do I need this test? You may have this test as part of your regular health checkup. You may have this test done more often if you are at risk for heart disease or have other health problems caused by high cholesterol. Here are some common reasons for the test: You have risk factors for heart disease. These include older age, obesity, family histor y of heart disease, high blood pressure, smoking, and diabetes. You have a condition that may be closely linked to high cholesterol. This includes diabe jay, alcoholism, and thyroid, liver, or kidney disease. You eat a diet high in cholesterol and fats. You may also have this test if you had high or borderline cholesterol on an earlier blood t est. Your healthcare provider may want to check to see whether medicine, diet, exercise, and other lifestyle changes are helping lower your cholesterol. What other tests might I have along with this test? You may need other blood tests to find out your HDL("good") cholesterol, LDL("bad") cho lesterol, and triglyceride levels. This combination of blood tests is called a lipoprotein p rofile or a lipid profile. What do my test results mean? Test results may vary depending on your age, gender, health history, the method used for th e test, and other things. Your test results may not mean you have a problem. Ask your health care provider what your test results mean for you. Total cholesterol is measured in milligrams per deciliter (mg/dL). This is what your number may mean: Less than 200 mg/dL is a good number. Your risk of heart disease may be low. 200 mg/dL to 239 mg/dL is borderline high. You may be at some risk for heart disease. 240 mg/dL or higher means your cholesterol is high. Your risk for heart disease may be h igher than that of a person with normal cholesterol. Keep in mind that your risk for heart disease based on your total cholesterol greatly depen ds on your HDL and LDL levels and other risk factors. High cholesterol may be linked to these conditions: Inherited diseases that cause high cholesterol Gallbladder stones Kidney failure Cancer of the pancreas or prostate Low thyroid hormone Diabetes Obesity Cholesterol levels below 140 mg/dL may happen with: Very healthy lifestyle and diet Severe liver disease High thyroid hormone Severe elmore White blood cell cancers Poor nutrition Some types of anemia Short-term illness or infection Chronic lung disease How is this test done? The test is done with a blood sample. A needle is used to draw blood from a vein in your ar m or hand. Does this test pose any risks? Having a blood test with a needle carries some risks. These include bleeding, infection, br uising, and feeling lightheaded. When the needle pricks your arm or hand, you may feel a sli ght sting or pain. Afterward, the site may be sore. What might affect my test results? Your diet, age, alcohol use, and other lifestyle choices may affect your results. Many medi cines may also affect your results. may also affect your results. Having a heart a ttack in the last 3 months will also affect your results. How do I get ready for this test? You should keep to your regular diet and not drink alcohol for at least 2 days before this test. You will be asked to not eat or drink anything but water for a certain amount of time before the test. This test is usually done in the morning after you fast overnight. If you t lalitha medicines in the morning, ask your healthcare provider if you should take your pills. In addition, be sure your healthcare provider knows about all medicines, herbs, vitamins, a nd supplements you are taking. This includes medicines that don't need a prescription and an y illegal drugs you may use. [id number] [employer] [address] [place] [id number]. All [facility] ts reserved. This information is not intended as a substitute for professional medical care. Always follow your healthcare professional's instructions. Alzheimer Disease Alzheimer disease is a brain illness that can happen usually in older adults, but it can al so happen as early as age 40. It is the most common cause of dementia. It is a progressive d isease. This means it gets worse over time. What is Alzheimer disease? Alzheimer disease causes a series of changes to nerves of the brain. Some nerves form into clumps and tangles, and lose some of their connections to other nerves. Healthcare providersdon t fully understand what causes Alzheimer disease. But they thin k these may be some of the causes: Age and family history Certain genes Abnormal protein deposits in the brain Environmental factors Problems with a person s immune system Possibly infections Symptoms of Alzheimer disease The disease causes changes in behavior and thinking known as dementia. The symptoms include : Memory loss Confusion Restlessness Personality and behavior changes Problems with judgment Problems communicating with others Inability to follow directions Lack of emotion Diagnosing Alzheimer disease No single test is able to diagnose Alzheimer disease. Instead healthcare providers use a se [place] of tests to rule out other health conditions. The tests may include: A complete medical history.This may include questions about overall health and past he alth problems. The healthcare provider may ask how well the person can do daily tasks. [facility] provider may ask family or close friends about any changes in behavior or personal ity. Mental status test. This is a test of memory, problem solving, attention, counting, and language. Standard medical tests.These may include blood and urine tests to find possible causes for the problem. Brain imaging tests. CT, MRI, or positron emission tomography (PET) may be used to rul e out other causes of the problem. Treating Alzheimer disease Alzheimer disease has no cure. Instead healthcare providers can help ease some symptoms. Th is can make a person with Alzheimer more comfortable. Treatment can also make it easier for their caregivers to take care of them. Some medicines may help slow the decline of a person s memory, thinking, and language ski lls. They may help with problems of behavior, such as aggression. They can lessen hallucinat ions and delusions. These medicines can work for some but not all people. And they may help for only a limited time. Medicines include: Cholinesterase inhibitors Donepezil Galantamine Rivastigmine Memantine In some cases, behavior problems can be caused by medicine side effects. Talk with the pers on s healthcare provider about all medicines he or she is taking. Keeping healthy For a person with Alzheimer, it s important to stay healthy. Good nutrition and physical and social activity are vital. A calm and well-structured environment will help. Make sure t o keep up with healthcare appointments and managing other health conditions, such as diabete s. Some people benefit from having a refractive surgeon help to prevent weight loss. Caring for someone with Alzheimer A person with Alzheimer will need more caregiving over time. Talk with your healthcare prov ider about caregiving resources. Date Last Reviewed: 09/03/[id number] [employer]. [address] [place] [address], [place] [address]. All righ ts reserved. This information is not intended as a substitute for professional medical care. Always follow your healthcare professional's instructions. Angioplasty and Stent Placement for the Heart What is angioplasty? Angioplasty, also called percutaneous coronary intervention (PCI), is a procedure used to o pen blocked coronary arteries (caused by coronary artery disease). It restores blood flow to the heart muscle without open-heart surgery. Angioplasty can be done in an emergency settin g such as an acute heart attack or in an elective setting when heart disease is strongly eda pected from non-invasive testing. For angioplasty, a special catheter (a long, thin, hollow tube) is inserted into a blood ve ssel and guided to the blocked coronary artery. The catheter has a tiny balloon at its tip. Once the catheter is in place, the balloon is inflated at the narrowed area of the coronary artery. This presses the plaque or blood clot blocking the artery against the sides of the a rtery making more room for blood flow. The use of fluoroscopy (a special type of X-ray that s like an X-ray "movie") helps the d octor find the blockages in the coronary arteries as a contrast dye moves through the arteri es. This is called coronary angiography. The doctor may determine that another type of procedure is necessary. This may include the use of atherectomy (removal of plaque) at the site of the narrowing of the artery. In athere ctomy, there may be tiny blades on a balloon or a rotating tip at the end of the catheter. W hen the catheter reaches the narrowed spot in the artery, the plaque is broken up or cut ramses y to open the artery. Stents Coronary stents are now used in nearly all angioplasty procedures. A stent is a tiny, expan dable, metal mesh coil that is put into the newly-opened area of the artery to help keep the artery from narrowing or closing again. Once the stent has been placed, tissue will start to form over it within a few days after t he procedure. The stent will be completely covered by scar tissue within a month or so. Medi cines called antiplatelets must be taken to decrease the "stickiness" of platelets (special blood cells that clump together to stop bleeding), and to prevent blood clots from forming i nside the stent. Your doctor will give specific instructions on which medicines need to be t aken and for how long. Most stents are coated with medicine to prevent the formation of too much scar tissue insid e the stent. These stents, called drug-eluting stents, or JIMI, release medicine within the b lood vessel that inhibits the overgrowth of tissue within the stent. This helps deter re- na rrowing of the blood vessel. Some stents do not have this medicine coating and are called bare metal stents or BMS. They may have higher rates of stenosis but do not require long-term use of antiplatelet medicine s. This may be the preferred stent in people who are at high risk of bleeding. Because stents can become blocked, it is important for you to talk with your doctor about w hat you need to do if you have chest pain after a stent placement. If scar tissue does form inside the stent, a repeat procedure may be needed. This may be us ing either balloon angioplasty or with a second stent. In some cases, radiation therapy may be given through a catheter placed near the scar tissue to stop the growth of scar tissue an d open up the vessel. This is called brachytherapy. Why might I need angioplasty? Angioplasty is done to restore coronary artery blood flow when the narrowed artery is in a location that can be reached in this manner. Not all coronary artery disease (CAD) can be tr eated with angioplasty. Your doctor will decide the best way to treat your CAD based on your circumstances. What are the risks of angioplasty? Possible risks associated with angioplasty, stenting, atherectomy, and related procedures i nclude, but are not limited to: Bleeding at the site where the catheter is put into the body (usually the groin, wrist, or arm) Blood clot or damage to the blood vessel from the catheter Blood clot within the treated blood vessel Infection at the catheter insertion site Abnormal heart rhythms Heart attack Stroke Chest pain or discomfort Rupture of the coronary artery or complete closing of the coronary artery, requiring ope n-heart surgery Allergic reaction to the contrast dye used Kidney damage from the contrast dye You may want to ask your doctor about the amount of radiation used during the procedure and the risks related to your particular situation.It is a good idea to keep a record of your radiation exposure, such as previous scans and other types of X-rays, so that you can infor m your doctor. Risks associated with radiation exposure may be related to the cumulative num tom of X-rays or treatments over a long period. For some people, having to lie still on the procedure table for the length of the procedure may cause some discomfort or pain. There may be other risks depending on your specific medical condition. Be sure to discuss a ny concerns with your doctor before the procedure. How do I get ready for angioplasty? Your doctor will explain the procedure to you and you can ask questions. You will be asked to sign a consent form that gives your permission to do the procedure. Read the form carefully and ask questions if anything is unclear. Tell your doctor if you have ever had a reaction to any contrast dye, or if you are oumar rgic to iodine. Tell your doctor if you are sensitive to or are allergic to any medicines, latex, tape, and anesthetic agents (local and general). You will need to fast (not eat or drink) for a certain period before the procedure. Your doctor will tell you how long to fast, whether for a few hours or overnight. Tell your doctor if you are or think you could be. Radiation exposure during pr egnancy may lead to defects. Tell your doctor if you have any body piercings on your chest or abdomen (belly). Tell your doctor of all medicines (prescription and rgss-jeg-sggovum), vitamins, herbs, and supplements that you are taking. Tell your doctor if you have a history of bleeding disorders or if you are taking any an ticoagulant or antiplatelet (blood-thinning) medicines, aspirin, or other medicines that aff ect blood clotting. You may need to stop some of these medicines before the procedure. Howev er, for planned angioplasty procedures, your doctor may want you to continue taking aspirin and antiplatelet medicines, so be sure to ask. Your doctor may request a blood test before the procedure to determine how long it takes your blood to clot. Other blood tests may be done as well. Tell your doctor if you have a pacemaker or other implanted device. You may get a sedative before the procedure to help you relax. Based on your medical condition, your doctor may request other specific preparation. What happens during angioplasty? Angioplasty may be done as part of your stay in a hospital. Procedures may vary depending o n your condition and your doctor's practices. Most people who undergo angioplasty and stent placement are monitored overnight in the hospital. Generally, angioplasty follows this process: 1. You will be asked to remove any jewelry or other objects that may interfere with the pro cedure. You may wear your dentures or hearing aid if you use either of these. 2. You will be asked to remove your clothing and will be given a gown to wear. 3. You will be asked to empty your bladder before the procedure. 4. If there is a lot of hair at the area of the catheter insertion (often the groin area), the hair may be shaved off. 5. An intravenous (IV) line will be started in your hand or arm before the procedure. It wi ll be used for injection of medicine and to give IV fluids, if needed. 6. You will be placed on your back on the procedure table. 7. You will be connected to an electrocardiogram (ECG) monitor that records the electrical activity of your heart and monitors your heart rate using electrodes that stick to your skin . Your vital signs (heart rate, blood pressure, breathing rate, and oxygen level) will be mo nitored during the procedure. 8. There will be several monitor screens in the room, showing your vital signs, the images of the catheter being moved through your body into your heart, and the structures of your he art as the dye is injected. 9. You will get a sedative in your IV to help you relax. However, you will likely stay awak e during the procedure. 10. Your pulses below the catheter insertion site will be checked and marked so that the ci rculation to the limb below the site can easily be checked during and after the procedure. 11. A local anesthetic will be injected into the skin at the insertion site. You may feel s ome stinging at the site for a few seconds after the local anesthetic is injected. 12. Once the local anesthetic has taken effect, a sheath, or introducer, will be put into t he blood vessel (often at the groin). This is a plastic tube through which the catheter will be threaded into the blood vessel and advanced into the heart. 13. The catheter will be threaded through the sheath into the blood vessel. The doctor will advance the catheter through the aorta into the heart. Fluoroscopy (an X-ray movie ) w ill be used to help see the catheter advance into the heart. 14. The catheter will be threaded into the coronary arteries. Once the catheter is in place , contrast dye will be injected through the catheter into your coronary arteries in order to see the narrowed area(s). You may feel some effects when the contrast dye is injected into the IV line. These effects include a flushing sensation, a salty or metallic taste in the mo uth, or a brief headache. These effects usually last only a few moments. 15. Tell your doctor if you feel any breathing trouble, sweating, numbness, itching, nausea or vomiting, chills, or heart palpitations. 16. After the contrast dye is injected, a series of rapid X-ray images of the heart and cor onary arteries will be taken. You may be asked to take in a deep breath and hold it for a fe w seconds during this time. 17. When the doctor locates the narrowed artery, the catheter will be advanced to that loca tion and the balloon will be inflated to open the artery. You may have some chest pain or di scomfort at this point because the blood flow is temporarily blocked by the inflated balloon . Any chest discomfort or pain should go away when the balloon is deflated. However, if you notice any continued discomfort or pain, such as chest pain, neck or jaw pain, back pain, ar m pain, shortness of breath, or breathing trouble, tell your doctor right away. 18. The doctor may inflate and deflate the balloon several times. The decision may be made at this point to put in a stent to keep the artery open. In some cases, the stent may be put into the artery before the balloon is inflated. Then the inflation of the balloon will open the artery and fully expand the stent. 19. The doctor will take measurements, pictures, or angiograms after the artery has been op ened. Once it has been determined that the artery is opened sufficiently, the catheter will be removed. 20. The sheath or introducer is taken out and the insertion site may be closed with a closu re device that uses collagen to seal the opening in the artery, by the use of sutures, or by applying manual pressure over the area to keep the blood vessel from bleeding. Your doctor will decide which method is best for you. 21. If a closure device is used, a sterile dressing will be applied to the site. If manual pressure is used, the doctor (or an housekeeping assistant) will hold pressure on the insertion site so t hat a clot will form on the outside of the blood vessel to prevent bleeding. Once the bleedi ng has stopped, a very tight bandage will be placed on the site. 22. Staff will help you slide from the table onto a stretcher so that you can be taken to [facility] recovery area. NOTE: If the insertion was in the groin, you will not be allowed to bend y our leg for several hours. If the insertion site was in the arm, your arm will be kept elevated on pillows and kept st raight by placing your arm in an arm guard (a plastic arm board designed to immobilize the e lbow joint). In addition, a plastic band (that works like a belt around the waist) may be se cured around your arm near the insertion site. The band will be loosened at given intervals and then removed when your doctor decides the pressure is no longer needed. What happens after angioplasty? In the hospital After the procedure, you may be taken to the recovery room for observation or returned to [facility] hospital room. You will stay flat in bed for several hours after the procedure. A nurse will monitor your vital signs, the insertion site, and circulation and sensation in the affe cted leg or arm. Tell your nurse right away if you feel any chest pain or tightness, or any other pain, as w ell as any feelings of warmth, bleeding, or pain at the insertion site. Bed rest may vary from 2 to 6 hours depending on your specific condition. If your doctor pl aced a closure device, your bed rest may be shorter. In some cases, the sheath or introducer may be left in the insertion site. If so, the bedre st will be last until the sheath is removed. After the sheath is removed, you may be given a light meal. You may feel the urge to urinate often because of the effects of the contrast dye and incre ased fluids. You will need to use a bedpan or urinal while on bed rest so that your affected leg or arm will not be bent. After the specified period of bed rest has been completed, you may get out of bed. The nurs e will help you the first time you get up, and will check your blood pressure while you are lying in bed, sitting, and standing. You should move slowly when getting up to avoid any diz ziness from the long period of bed rest. You may be given pain medicine for pain or discomfort at the insertion site or from having to lie flat and still for a long time. You will be encouraged to drink water and other fluids to help flush the contrast dye from your body. You may go back your usual diet after the procedure, unless your doctor decides otherwise. You will most likely spend the night in the hospital after your procedure. Depending on you r condition and the results of your procedure, your stay may be longer. You will get detaile d instructions for your discharge and recovery period. At home Once at home, monitor the insertion site for bleeding, unusual pain, swelling, abnormal dis coloration, or temperature change. A small bruise is normal. If you notice a constant or lar ge amount of blood at the site that cannot be contained with a small dressing, tell your doc tor. If your doctor used a closure device at your insertion site, you will be given specific inf ormation regarding the type of closure device that was used and how to take care of the site . There will be a small knot, or lump, under the skin at the site. This is normal. The knot should slowly disappear over a few weeks. It will be important to keep the insertion site clean and dry. Your doctor will give you sp ecific bathing instructions. You may be advised not to participate in any strenuous activities. Your doctor will instruc t you about when you can return to work and resume normal activities. Tell your doctor if you have any of the following: Fever or chills Increased pain, redness, swelling, bleeding, or other drainage from the insertion site Coolness, numbness or tingling, or other changes in the affected arm or leg Chest pain or pressure, nausea or vomiting, profuse sweating, dizziness, or fainting Your doctor may give you other instructions after the procedure, depending on your particul ar situation. Next steps Before you agree to the test or the procedure make sure you know: The name of the test or procedure The reason you are having the test or procedure What results to expect and what they mean The risks and benefits of the test or procedure What the possible side effects or complications are When and where you are to have the test or procedure Who will do the test or procedure and what that person s qualifications are What would happen if you did not have the test or procedure Any alternative tests or procedures to think about When and how will you get the results Who to call after the test or procedure if you have questions or problems How much will you have to pay for the test or procedure [phone] [employer]. [address] [place] [address], [place] [address]. All righ ts reserved. This information is not intended as a substitute for professional medical care. Always follow your healthcare professional's instructions. AttachmentsThe following attachments cannot be sent through Care Everywhere.Cholesterol, Un derstanding Fat and ([place])Cholesterol, Lifestyle Changes to Control ([place])Diet, Low Fa t ([place])Diet, Low-Salt ([place])documented in this encounter Medications at Time of Discharge + + + +---------+ + + | Medication | Sig | Dispensed | Refills | Start | End Date | | | | | | Date | | + + + +---------+ + + | amLODIPine | Take 1 tablet by | 30 | 3 | 05/25/20 | | | (NORVASC) 10 MG | mouth Daily. | tablet | | 20 | | | tablet | | | | | | + + + +---------+ + + | aspirin 81 mg | Chew and swallow 1 | 30 | 3 | 10/28/19 | | | chewable tablet | tablet Daily. | tablet | | 20 | | + + + +---------+ + + | atorvaSTATin | Take 1 tablet by | 30 | 3 | 10/28/19 | | | (LIPITOR) 80 MG | mouth nightly. | tablet | | 20 | | | tablet | | | | | | + + + +---------+ + + | clopidogrel | Take 1 tablet by | 30 | 3 | 10/28/19 | | | (PLAVIX) 75 mg | mouth Daily. | tablet | | 20 | | | tablet | | | | | | + + + +---------+ + + documented as of this encounter Progress Notes Allegra Hager RN - 10/28/2019 12:02 PM PDTPatient provided education via video that cover s what a blockage in a coronary artery is and describes PCI, angioplasty and stenting. Patie nt given handouts and verbal education on prescribed antiplatelet plavix. Patient education on action of plavix, importance of taking it and what to do if unable to take medications d ue to illness.Patient also given information on where and how he can obtain this medication. Patient verbalized understanding, and all questions answered. Family at bedside. Allegra torres, RN cEma Hawthorne R N - 10/27/2019 4:48 PM PDTPt sleepy on return from bundle tier and labeler, but woke up to eat. Does not s eem to understand direction, as he attempted to get up and out of bed. Wanted to go out int o the hallway to urinate. Fell back to sleep and has been resting comfortably. TR band kayla derrek per protocol. Cheyenne castillo MD - 10/27/2019 9:47 AM PDTFormatting of this note might be different from th williams original. [place] HOSPITALIST PROGRESS NOTE Patient: Robin Dumont : 1945: Age: 74 y.o. MedRec: [id number] Admission date: 10/26/2019 Hospital day # : 1 Physician author: Cheyenne Dukes MD Today: 10/27/2019 Assessment and Hospital Course Active Hospital Problems Diagnosis NSTEMI (non-ST elevated myocardial infarction) Essential hypertension Other hyperlipidemia Alzheimer's dementia without behavioral disturbance Resolved Hospital Problems No resolved problems to display. 74 yo M with history of dementia, hypertension, HLD who presented with possible NSTEMI. Plan #Chest pain #NSTEMI Troponin elevated to 2.2. Patient scheduled for cath today ([facility]). Continue aspirin, statin. Started Plavix. Patient denies chest pain currently. #Variable AV block Noted on ECG and telemetry. Continue to monitor for now. Recheck electrolytes tomorrow. #Dementia Stable, seems to be at cognitive baseline. #Hypertension Elevated blood pressure noted here, started on amlodipine, will increase dose. FEN: NPO for procedure Subjective CC: no complaints Patient reports no complaints. Limited historian. ROS was performed and was negative except as noted above. Exam Gen: WDWN, nad HEENT: MMM, neck supple CV: regular rate and rhythm no m/r/g Pulm: LCAB Abdominal: soft, nontender, nondistended, normal bowel tones Extremities: well perfused, no edema Skin: warm, dry, no rashes Neuro: alert, moves all extremities Psych: limited insight, calm Allergies: No Known Allergies Current Medications: Current Facility-Administered Medications Medication Dose Route Frequency Provider Last Rate Last Dose amLODIPine (NORVASC) tablet 5 mg 5 mg Oral Daily Diego Garg MD 5 mg at 10/27/19 0 914 aspirin chewable tablet 81 mg 81 mg Oral Daily Grace Lind MD 81 mg at 0914 atorvaSTATin (LIPITOR) tablet 80 mg 80 mg Oral Nightly Grace Lnid MD 80 mg a t 10/26/19 2134 clopidogrel (PLAVIX) tablet 75 mg 75 mg Oral Daily Diego Garg MD 75 mg at 0 0914 diazePAM (VALIUM) tablet 5 mg 5 mg Oral Digital Marketing Apprentice Diego Garg MD diphenhydrAMINE (BENADRYL) tablet 25 mg 25 mg Oral Digital Marketing Apprentice Diego Garg MD morphine injection 2 mg 2 mg Intravenous Q3H PRN Grace Lind MD nitroglycerin (NITROSTAT) SL tablet 0.4 mg 0.4 mg Sublingual Q5 Min PRN Grace lovett MD ondansetron (ZOFRAN ODT) disintegrating tablet 4 mg 4 mg Oral Q6H PRN Grace bender MD polyethylene glycol (MIRALAX) powder 17 g 17 g Oral Daily PRN Grace Lind MD senna (SENOKOT) tablet 8.6 mg 8.6 mg Oral BID PRN Grace Lind MD sodium chloride 0.9% (NS) infusion Intravenous Continuous Diego Garg MD 100 mL/hr at 10/27/19 0906 Current Infusions: sodium chloride 0.9% 100 mL/hr at 10/27/19 0906 Objective Data Point of care glucose No results for input(s): POCGLU in the last 168 hours. Labs last 24 hours Recent Results (from the past 24 hour(s)) Troponin I Collection Time: 10/26/19 9:53 AM Result Value Ref Range Troponin I 2.20 (HH) <0.06 ng/mL Protime INR Collection Time: 10/27/19 8:10 AM Result Value Ref Range Prothrombin Time 14.2 (H) 11.3 - 13.9 seconds INR 1.0 0.9 - 1.1 Micro results (more choices using dot micro) Microbiology Results (72 hrs) No results found for the last 72 hours. Radiology results (more choices using dot risresults) No results found. Vitals Ranges: Temp: [36.1 C (97 F)-36.6 C (97.9 F)] 36.1 C (97 F) Pulse: [50-58] 50 Resp: [18] 18 BP: (145-180)/(66-80) 162/75 Vitals: Temp: 36.1 C (97 F) BP: 162/75 Pulse: 50 Resp: 18 SpO2: 98 % SpO2 98 % on room air at flow rate L/min Cheyenne Dukes MD 10/27/2019 9:47 AM [facility] documented in this enco unter H&P Notes Grace Lind MD - 10/26/2019 6:38 AM PDT HISTORY AND PHYSICAL Pt. Name/Age/: Robin Dumont 74 y.o. 1945 Date of admission: 10/26/2019 Admitting Physician: Grace Lind MD Primary Care Provider: No primary care provider on file. Information Source: patient, past medical records and ED report Information Review: active problem list, medication list, lab results, imaging ASSESSMENT / PLAN: NSTEMI - Chest pain-free currently, on telemetry, n.p.o. - EKG with RBB, no significant ST changes - Continue trending troponin, Plavix load, Lovenox 1 mg/kg, Atorvastatin, Coreg low-dose, p rn nitro - Cardiology consulted. Next troponin at 10 AM Diet: N.p.o. DVT Prophylaxis low molecular weight heparin and SCD's while in bed Code Status does have advanced directives, and it is his wish to have resuscitative efforts attempted in case of cardiopulmonary arrest. As such, he will be deemed Full Code. [facility] Documentation This patient will be placed in observation status. [facility] Documentation I expect this patient will be hospitalized for less than 2-midnights and expect the post-ho spital plan to be discharge to home or to an adult foster home. I expect this patient will be discharged or transferred in less than 96 hours Chief Complaint: Pain in my chest that is gone History of Present Illness: This is a 74 y.o. male with a history of hypertension, hyperlipidemia, dementia. He presents without his son and is unsure of the timing of events. Per ED physician report, patient presented with his son to outside hospital at midnight with report of anterior chest pain that self resolved prior to their arrival. Patient was at rest when he experienced th e pain. He describes it as non-radiating, a pressure, and lasting for a few minutes. He al so experienced associated dizziness and palpitations. No diaphoresis, nausea, or syncope. H is son gave him aspirin x3 which seemed to improve the pain. However, patient is unable to remember why they went to the hospital. At the outside hospital, he was chest pain-freeLabs were obtained and showed mild bump in troponin (0.016 to 0.04). Therefore, patient was tra nsferred for further level of care.Patient seems to have a better long-term versus short-ter m memory bank. However, he is able to answer review of system questions properly.Will need information from his son when available; no number on chart. ED/OSH Afebrile, blood pressure 149/90, heart rate 99, respiratory rate 19, 100% on room air. CBC unremarkable; WBC 11.6, Platelets 153, Hemoglobin 13.6. Potassium 4, creatinine 1.38, Glucos e 178, magnesium 1.9, LFTs within normal limits. CXR showed RUL nodule possible harmatoma or granulmoa Past Medical and Surgical History: Hypertension and hyperlipidemia Patient is uncertain of surgical history Medications Prior to Admission: Lisinopril Atorvastatin Allergies: No Known Allergies Personal / Social History: Former smoker; patient reports he quit 5 years ago Family History: None reported per patient but unsure Review of Systems: Review of Systems Constitutional: Negative for chills and fever. HENT: Negative for congestion, sinus pain and sore throat. Eyes: Negative for redness. Respiratory: Positive for cough. Negative for shortness of breath. Cardiovascular: Positive for chest pain and palpitations. Negative for leg swelling. Gastrointestinal: Negative for abdominal pain, nausea and vomiting. Genitourinary: Negative for dysuria. Musculoskeletal: Negative for back pain and joint pain. Skin: Positive for itching. Neurological: Positive for dizziness. Negative for headaches. Physical Examination: Vital Signs: Temp: 37.1 C (98.7 F), Pulse: 65, Resp: 18, BP: 184/64, SpO2 98 % on at flow rate L/ min Temp Min: 37.1 C (98.7 F) Max: 37.1 C (98.7 F) Weight: 97 kg (213 lb 13.5 oz), There is no height or weight on file to calculate BMI. Physical Exam Constitutional: He is oriented to person, place, and time. He appears well-nourished. No di stress. Sitting up in bed HENT: Head: Atraumatic. Mouth/Throat: Oropharynx is clear and moist. No oropharyngeal exudate. Eyes: Conjunctivae and EOM are normal. Neck: Normal range of motion. Neck supple. Cardiovascular: Normal rate, regular rhythm and intact distal pulses. Murmur heard. Pulmonary/Chest: Effort normal and breath sounds normal. No respiratory distress. He has no wheezes. Abdominal: Soft. Bowel sounds are normal. He exhibits no distension. There is no abdominal tenderness. There is no rebound. Musculoskeletal: Normal range of motion. General: No tenderness or edema. Neurological: He is alert and oriented to person, place, and time. No cranial nerve deficit . Coordination normal. Diagnostic Studies: Available data and images were reviewed personally. Significant results and findings are a ddressed here or in the Assessment and Plan. LABS: No results for input(s): WBC, HGB, HCT, PLT, MCV in the last 72 hours. Recent Labs 10/26/19 0525 NA 140 K 4.0 CL 105 CO2 26 BUN 21 CREA 1.13 GLU 102 CALCIUM 10.1 Recent Labs 10/26/19 0525 TROPONIN 1.48* Mr.Tim was initially seen by me at 06:15 on 10/26/2019, and75 minutes were required to c omplete the admission process. I have formulated the differential diagnosis that needs to b e addressed in this visit and the plan of care. These were discussed with the patient. I yulia cabrera also discussed the risks and benefits of all treatment modalities planned and determined to be appropriate during this hospital visit. All questions were answered satisfactorily. Electronically signed by: Grace Lind MD 10/26/2019 Portions of this chart may have been created with [employer] voice recognition software. Occasi onal wrong-word or sound-alike substitutions may have occurred due to the inherent pabon itations of voice recognition software. Please read the chart carefully and recognize, using context, where these substitutions have occurred documented in this encounter Consult Notes Diego Garg MD - 10/26/2019 8:44 AM PDT PATIENT NAME: Robin Dumont : 1945: AGE: 74 y.o. ADMISSION DATE: 10/26/2019 HOSPITAL DAY NUMBER: 1 PRIMARY CARE: No primary care provider on file. REFERRING PROVIDER: CONSULTING PROVIDER: Diego Garg MD CARDIOLOGY CONSULTATION DATE OF CONSULTATION: 10/26/19 REASON FOR CONSULT: NSTEMI HISTORY OF PRESENT ILLNESS: Robin Dumont is a 74 y.o. male who was transferred from outside hospital with elevated tro ponins. It is limited because of patient's dementia. He was brought to the emergency room room by his son with chest pains that self resolved. However, this is been associated with elevated hugo of his troponins serially. Patient denies any chest pains at this time and because of dementia, history is hard to obtain. PAST MEDICAL HISTORY No past medical history on file. PAST SURGICAL HISTORY No past surgical history on file. FAMILY HISTORY No family history on file. SOCIAL HISTORY Social History Socioeconomic History Marital status: Not on file Spouse name: Not on file Number of children: Not on file Years of education: Not on file Highest education level: Not on file Occupational History Not on file Social Needs Financial resource strain: Not on file Food insecurity: Worry: Not on file Inability: Not on file Transportation needs: Medical: Not on file Non-medical: Not on file Tobacco Use Smoking status: Former Smoker Smokeless tobacco: Never Used Substance and Sexual Activity Alcohol use: Not Currently Drug use: Not on file Sexual activity: Not on file Lifestyle Physical activity: Days per week: Not on file Minutes per session: Not on file Stress: Not on file Relationships Social connections: Talks on phone: Not on file Gets together: Not on file Attends faith service: Not on file Active member of club or organization: Not on file Attends meetings of clubs or organizations: Not on file Relationship status: Not on file Intimate partner violence: Fear of current or ex partner: Not on file Emotionally abused: Not on file Physically abused: Not on file Forced sexual activity: Not on file Other Topics Concern Not on file Social History Narrative Not on file MEDICATIONS: Current Facility-Administered Medications Medication Dose Route Frequency Provider Last Rate Last Dose [START ON 10/27/2019] aspirin chewable tablet 81 mg 81 mg Oral Daily Grace Lind MD atorvaSTATin (LIPITOR) tablet 80 mg 80 mg Oral Nightly Grace Lind MD carvedilol (COREG) tablet 3.125 mg 3.125 mg Oral BID WC Grace Lind MD 3.125 mg at 10/26/19 0813 morphine injection 2 mg 2 mg Intravenous Q3H PRN Grace Lind MD nitroglycerin (NITROSTAT) SL tablet 0.4 mg 0.4 mg Sublingual Q5 Min PRN Grace lovett MD ondansetron (ZOFRAN ODT) disintegrating tablet 4 mg 4 mg Oral Q6H PRN Grace bender MD polyethylene glycol (MIRALAX) powder 17 g 17 g Oral Daily PRN Grace Lind MD senna (SENOKOT) tablet 8.6 mg 8.6 mg Oral BID PRN Grace Lind MD [facility] list of outpatient meds: No medications prior to admission. ALLERGIES No Known Allergies REVIEW OF SYSTEMS General No weight change, fatigue Eyes No drainage or change in vision, ENT No pain, ear drainage or change in hearing Respiratory See present illness. Cardiovascular: See present illness GI No abdominal pain, no bloody stool, nausea, vomiting No painful urination. No previous renal failure Musculoskeletal No deformity or amputation. Neurological No history of stroke, seizure or neuromuscular disease Psychiatric No previous admissions for psyche issues Endocrine Diabetes: no history Heme/onc No previous anemia or cancer. PHYSICAL EXAM Vital signs: Vitals: 10/26/19 0745 BP: 160/73 Pulse: 52 Resp: 16 Temp: 35.8 C (96.4 F) Admit Weight: Weight: 97 kg (213 lb 13.5 oz) Current weight: Weight: 97 kg (213 lb 13.5 oz) There is no height or weight on file to calculate BMI. General appearance: Robust appearing gentleman. Memory and interactions are limited. Chest: Clear Cardiovascular: S1-S2 Gastrointestinal Abdomen: soft, non-tender, normal bowel sounds, no organomegaly nor masses. Mental Status/Neurological Grossly oriented. No obvious motor or cranial nerve deficits. Affect/Mood: appropriate. Extremities No edema Skin: Unremarkable LABS: Admission on 10/26/2019 Component Date Value Ref Range Status Troponin I 10/26/2019 1.48* <0.06 ng/mL Final Comment: Reference Ranges: 0.00-0.06 = NORMAL >0.06 = SUSPICIOUS FOR MYOCARDIAL DAMAGE NOTE: Values greater than 0.78 ng/mL have been shown to be strongly associated with acute m yocardial infarction. The [employer] College [employer] (ACC) recommends a decision limit of 0.06 ng/mL for this assay. Results greater than 0.06 can reflect a pre-infarct acute coronary syndrome, but c an also reflect myocardial necrosis or injury that is not due to coronary artery disease. Some of these causes aresepsis, hypocolemia, atrial fibrillation, heart failure, pulmonary embolism, myocarditis, myocardial contusion, and renal failure. The diagnosis of myocardi al infarction should be based on a combination of the patient's clinical presentation and th e clinical laboratory test results (especially serial troponin levels). Critical Result called to and read back by Matilde Velásquez RN on 10/26/2019 at 6:13 AM by Pierre Lund. Triglycerides 10/26/2019 42 <=150 mg/dL Final Cholesterol 10/26/2019 186 <=200 mg/dL Final HDL 10/26/2019 68* 40 - 60 mg/dL Final Chol/HDL Ratio 10/26/2019 2.7 Final LDL, Calculated 10/26/2019 110 <=130 mg/dL Final Na 10/26/2019 140 136 - 145 mmol/L Final K 10/26/2019 4.0 3.4 - 5.1 mmol/L Final Cl 10/26/2019 105 98 - 107 mmol/L Final CO2 10/26/2019 26 20 - 31 mmol/L Final Anion Gap 10/26/2019 9 3 - 16 mmol/L Final Glucose 10/26/2019 102 60 - 106 mg/dL Final BUN 10/26/2019 21 9 - 23 mg/dL Final Creatinine 10/26/2019 1.13 0.70 - 1.30 mg/dL Final eGFR if not 10/26/2019 >60 >=60 mL/min/1.73m2 Final GLOMERULAR FILTRATION RATE,ESTIMATED mL/min/1.73m2 Less than 60 Chronic kidney disease,if found over a 3-month period. Less than 15 Kidney failure For Americans,multiply the calculated GFR by 1.21. Calcium 10/26/2019 10.1 8.7 - 10.4 mg/dL Final Albumin 10/26/2019 4.3 3.2 - 4.8 g/dL Final Bilirubin Total 10/26/2019 0.6 0.3 - 1.2 mg/dL Final Total Protein 10/26/2019 7.2 5.7 - 8.2 g/dL Final AST 10/26/2019 20 0 - 34 U/L Final ALT 10/26/2019 18 10 - 49 U/L Final Alkaline Phosphatase 10/26/2019 69 46 - 116 U/L Final Globulin 10/26/2019 2.9 2.1 - 3.8 g/dL Final Albumin/Globulin Ratio 10/26/2019 1.5 0.8 - 1.9 Final BUN/Creatinine Ratio 10/26/2019 18.6 Final INTERPRETATION TEXT 10/26/2019 Not Confirmed Preliminary Recent Labs Lab 10/26/19 0525 TROPONIN 1.48* IMAGING: No results found. ECG: EKG shows right bundle branch block. There is long CT with occasional dropped beats. Left anterior hemiblock is noted with no acute ST-T changes. DIAGNOSES AND ASSESSMENTS: 1. NSTEMI with elevation troponins and no acute ST-T changes 2. Conduction defects 3. Dementia PLAN OR RECOMMENDATIONS: Patient is a candidate for invasive evaluation treatment for his N STEMI. However this is limited because of his dementia and I have contacted his son Nixon Neal [phone] who is his power of heel varnisher to discuss the level of care because of his progressive dementia. Right. Because of his conduction defect and bradycardia. Amlodipine has been started He with Lovenox, aspirin, Plavix and Lipitor in the a.m. I appreciate the opportunity of participating in the care of this patient. Diego Garg MD, [facility], 10/26/2019 8:44 AM documented in this enco unter Miscellaneous Notes Plan of Care - Marcella Finney RN - 10/28/2019 2:00 PM PDTPatient stable. VSS on r oom air. Patient and son Nixon verbalize discharge instructions, all questions answered. Son taking patient home for he lives with him. Stent card with patient. eICU Note - Myla Kohli RN - 2019 7:00 AM PDTPt able to get sleep this shift. R wrist puncture site CDI. Pt HR raúl, wi th 1st degree AV block and BBB. Pt pleasant but confused. rief Op Note - Diego Garg MD - 10/27/2019 12:38 PM P DT BRIEF OPERATIVE NOTE [facility] Pt. Name/Age/: Robin Dumont 74 y.o. 1945 Med. Record Number: [id number] Date of admission: 10/26/2019 Date of Operation/Procedure: 10/27/2019 Preoperative Diagnosis: chest pain Postoperative Diagnosis: cad Surgeon: Diego Garg MD Lieutenant General: None Anesthesia Provider(s): No anesthesia staff entered. Anesthesia Type: Anesthesia type not filed in the log. Procedure(s): CV COR ANGIO CV LHC CV LV CV Stent Operative Findings: Patient had a high-grade mid PDA stenosis. Right coronary was dominant . Left coronary system was normal. LV function was normal. Wound Closure: TR band Evidence of infection: No infection noted. Estimated Blood Loss: 10 cc IV Fluids: refer to anesthesia record Blood Transfusion: None Drains: none Specimen (s): * No specimens in log * Implants: Implant Name Type Inv. Item Serial No. School Lunch Manager Lot No. LRB No. Used STENT JIMI SYNERGY MR 3.0 X 20 - [id number] Stent STENT JIMI SYNERGY MR 3.0 X 20 IBillionaire NTIFIC TAM - [facility] [id number] N/A 1 Counts: Instrument, sponge, and needle counts were correct prior to closure and at the con clusion of the case. Complications: None Disposition: The patient was taken to Critical Care Immediate Post-Operative Condition: Stable Electronically signed by: Diego Garg MD, 10/27/2019, 12:38 PM lan of Artur Cabrera RN - 10/27/2019 1 2:37 PM PDTPatient alert and oriented to self. Patient can be impulsive at times. Telesitt er in place to help monitor for patient pulling lines. Patient is redirectable. Second IV p laced in RFA. NS IV started per Dr. Garg. SonNixon came in and signed consent for Angiogr am. Pre meds given prior to transfer to bundle tier and labeler. Patient transferred to bundle tier and labeler around 1 145. Anticipate going to ICU post procedure, son informed. lan of Wendie Bardales RN - 10/27/2019 3:5 4 AM PDTGerald is alert to self and free of falls during shift. He has dementia and is confu sed but easily redirected/oriented. Denied chest pain. He is impulsive when getting up and a mbulating but easily redirected. Pulled at his leads a few times and wants to walk/get up co nsistently. Tele sitter and rover in place. Telemetry in place. HR raúl and elevated BP 180 /80 asymptomatic. Tele hospitalist notified and wanted to monitor for the time being. Freque nt rounding done and will continue to monitor. lan Artur Davila RN - 10/26/2019 6:51 PM PDTPatien t alert and oriented to self. No complaints of chest pain. Confused but redirectable. Too k Tele leads off multiple times during the day. Stands up and ambulates without calling for help. Telesitter was put in place but patient did not listen to telesitter instructions. [facility] was visiting in the morning. Patient was seen by Hvac Service Manager, Dr. Garg. Plan is to revaluate in the morning to determine need for angiogram. Bradycardia, and elevated tropon in levels reported to Doctor. Patient now has a sitter to assist with redirection. Electro nically signed by Artur Andrew RN at 10/26/2019 6:57 PM PDTPlan of Care - Dayana Gardiner MSW - 10/26/2019 10:36 AM PDTMet with patient and son Nixon at bedside to discuss disch arge planning. Son states that they recently moved to [place]. Son states that they just s old their home at the end of the winter and planned to travel the [facility] in their unt il the COVID restrictions were implemented, that is why they moved to a family's house in [facility]. Prior to hospitalization, son states that the patient was independent with all ADL' s, would walk several miles a day. Patient did not use DME and does not have any DME or home oxygen. Son is with patient 26/12. Patient's PCP is Dr. Barry at [facility] in [facility]. Son wants to keep e PCP in [place], states he has been seeing this PCP for a few years and knows patient randa venkat. Son states their transient lifestyle doesn't justify getting a new PCP in [place] as is is not their permanent housing. Plan: Return to [place] with son when medically stable. Electronically signed by: ALTA Chen 10/26/2019 10:41 AM documented in this encounter Plan of Treatment + + +--------+ + + | Name | Type | Priori | Associated Diagnoses | Order Schedule | | | | ty | | | + + +--------+ + + | * [facility] | Outpatient | Routin | NSTEMI (non-ST | Ordered: 10/28/2019 | | -AMB Referral | Referral | e | elevated myocardial | | | | | | infarction) ([facility]) | | + + +--------+ + + | Ambulatory referral | Outpatient | Routin | NSTEMI (non-ST | Ordered: 10/28/2019 | | to Cardiology | Referral | e | elevated myocardial | | | | | | infarction) ([facility]) | | + + +--------+ + + documented as of this encounter Procedures + +--------+ [...] + + documented in this encounter Results ECG - EXTERNAL SCAN (11/01/2019 12:00 AM PDT) + + + | Narrative | Performed At | + + + | Ordered by an | | | unspecified provider. | | + + + ECG 12 lead (10/28/2019 4:37 AM PDT) + + + + + [...] | | | | BRISEIDA SHAH MD ([id number]) | | | | | | on [...] | | | | | | [facility] | | [facility] | [facility] | [facility] | | | | | | CENTER - | | | | | | LABORATORY | | + +-------+ + + + | RBC | 5.04 | 4.30 - 5.70 | [facility] | | | | | M/uL | [facility] | | | | | | [facility] | | | | | | CENTER - | | | | | | LABORATORY | | + +-------+ + + + | Hemoglobin | 14.8 | 13.5 - 18.0 | [facility] | | | | | g/dL | [facility] | | | | | [facility] | | | | | | C[facility] - | | | | | | LABORATORY | | + +-------+ + + + | Hematocrit | 45.7 | 40.0 - 51.0 % | [facility] | | | | | | [facility] | | | [facility] | | [facility] | | | | | | C[facility] - | | | | | | LABORATORY | | + +-------+ + + + | MCV | 90.7 | 83.0 - 101.0 fL | [facility] | | | | | | [facility] | | [facility] | [facility] | [facility] | | | | | | CENTER - | | | | | | LABORATORY | | + +-------+ + + + | MCH | 29.4 | 28.0 - 35.0 pg | [facility] | | | | | | [facility] | | | [facility] | | [facility] | | | | | | CENTER - | | | | | | LABORATORY | | + +-------+ + + + | MCHC | 32.4 | 32.0 - 36.0 | [facility] | | | | | g/dL | [facility] | | | | | | [facility] | | | | | | CENTER - | | | | | | LABORATORY | | + +-------+ + + + | RDW-CV | 13.4 | <15.0 % | [facility] | | | | | | [facility] | | | | [facility] | [facility] | | | | | | CENTER - | | | | | | LABORATORY | | + +-------+ + + + | RDW-SD | 45.2 | 35.1 - 46.3 fL | [facility] | | | | | | [facility] | [facility] | | [facility] | [facility] | | | | | | CENTER - | | | | | | LABORATORY | | + +-------+ + + + | Platelet | 191 | 140 - 440 K/uL | [facility] | | | Count | | | [facility] | | | | [facility] | [facility] | | | | | | CENTER - | | | | | | LABORATORY | | + +-------+ + + + | MPV | 12.2 | 6.5 - 12.4 fL | [facility] | | | | | | [facility] | | | | | | MEDICAL | | | | | | CENTER - | | | | | | LABORATORY | | + +-------+ + + + | % nRBC | 0 | 0 - 2 per 100 | [facility] | | | | | WBCs | [facility] | | | | | | MEDICAL | | | | | | CENTER - | | | | | | LABORATORY | | + +-------+ + + + | Absolute | 0.00 | 0.00 - 0.01 | [facility] | | | nRBC | | K/uL | [facility] | [...] | + + + + + | [facility] | [address] | [place], [place] | [phone] | | [facility] | | [address] | | | - LABORATORY | | [...] | | | | mmol/L | [facility] | | | | | | MEDICAL | | | | | | CENTER - | | | | | | LABORATORY | | + + + + + + | K | 4.0 | 3.4 - 5.1 | [facility] | | | | | mmol/L | [facility] | | | | | | MEDICAL | | | | | | CENTER - | | | | | | LABORATORY | | + + + + + + | Cl | 103 | 98 - 107 mmol/L | [facility] | | | | | | [facility] | | | | | | MEDICAL | | | | | | CENTER - | | | | | | LABORATORY | | + + + + + + | CO2 | 29 | 20 - 31 mmol/L | [facility] | | | | | | [facility] | | | | | | MEDICAL | | | | | | CENTER - | | | | | | LABORATORY | | + + + + + + | Anion Gap | 8 | 3 - 16 mmol/L | [facility] | | | | | | [facility] | | | | | | [facility]ICAL | | | | | | CENTER - | | | | | | LABORATORY | | + + + + + + | Glucose | 91 | 60 - 106 mg/dL | [facility] | | | | | [facility] | | | | | | [facility]ICAL | | | | | | CENTER - | | | | | | LABORATORY | | + + + + + + | BUN | 16 | 9 - 23 mg/dL | [facility] | | | | | | [facility] | | | | | | [facility]ICAL | | | | | | CENTER - | | | | | | LABORATORY | | + + + + + + | Creatinine | 1.08 | 0.70 - 1.30 | [facility] | | | | | mg/dL | [facility] | | | | | | MEDICAL | | | | | | CENTER - | | | | | | LABORATORY | | + + + + + + | eGFR if not | >60Comment: GLOMERULAR | >=60 | [facility] | | | | FILTRATION | mL/min/1.73m2 | [facility] | | | [place] | RATE,ESTIMATED | | MEDICAL | | | | mL/min/1.50n3Lrdn than | | CENTER - | | [...] | | ine Ratio | | | [facility] | | | | | | MEDICAL [...] | + + + + + | [facility] | [address] | [place] | [phone] | | [facility] | | [address] | | | - LABORATORY | | | | + + + + + ECG 12 lead (10/27/2019 3:09 PM PDT) + + + + + + | Component | Value | Ref Range | Performed | Pathologist | | | | | At | Signature | + + + + + + | VENTRICULAR | 57 | BPM | [facility] | | | RATE EKG | | | | | + + + + + + | ATRIAL RATE | 57 | BPM | [facility] | | + + + + + + | P-R | 256 | ms | [facility] | | | INTERVAL | | | | | + + + + + + | QRS | 150 | ms | [facility] | | | DURATION | | | | | + + + + + + | Q-T | 476 | ms | [facility] | | | INTERVAL | | | | | + + + + + + | Q-T | 463 | ms | [facility] | | | INTERVAL | | | | | | (CORRECTED) | | | | | + + + + + + | P WAVE AXIS | 73 | degrees | [facility] | | + + + + + + | QRS AXIS | -67 | degrees | [facility] | | + + + + + + | T AXIS | 49 | degrees | [facility] | | + + + + + + | INTERPRETAT | Sinus bradycardia with | | [facility] | | | ION TEXT | 1st degree AV block with | | | | | | Possible intermittent | | | | | | 2nd degree AV block | | | | | | (Mobitz I)Right bundle | | | | | | branch blockLeft | | | | | | anterior fascicular | | | | | | blockAbnormal ECGWhen | | | | | | compared with ECG of | | | | | | 26-OCT-2019 07:37,No | | | | | | significant change was | | | | | | foundConfirmed by | | | | | | BRISEIDA SHAH MD ([id number]) | | | | | | on 10/28/2019 6:46:50 AM | | | | + + [...] | | | + +---------+ + + CV CARDIAC PROCEDURE (10/27/2019 12:39 [...] | | | medications administered by the Bow Rehairer nurse under my supervision. | | | [...] + + | Performing | Address | City/State[facility] | Phone Number | | Organization | [...] | | Clotting | | second(s) | [facility] | | | Time, POC | [...] + | [facility] | [address] | [place] | [phone] | | [facility] | | [address] | | | - LABORATORY | | | | + + + + + Protime INR (10/27/2019 8:10 AM PDT) + + + + + + | Component | Value | Ref Range | Performed | Pathologist | | | | | At | Signature | + + + + + + | Prothrombin | 14.2 (H) | 11.3 - 13.9 | [facility] | | | Time | | seconds | [facility] | | | | | | [facility]ICAL | | | | | | CENTER - | | | | | | LABORATORY | | + + + + + + | INR | 1.0Comment: Usual Oral | 0.9 - 1.1 | [facility] | | | | Anticoagulation Range: | | [facility] | | | | 2.0 - 3.0High [...] + + | Performing | Address | City/State[facility] | Phone Number | | Organization | | | | + + + + + | [facility] | [address] | [place] | [phone] | | [facility] | | [address] | | | - LABORATORY | | [...] + + Troponin I (10/26/2019 9:53 AM PDT) + + + + + + | Component | Value | Ref Range | Performed | Pathologist | | | | | At | Signature | + + + + + + | Troponin I | 2.20 ()Comment: | <0.06 ng/mL | [facility] | | | | Comment:Reference | | [facility] | | | | Ranges: 0.00-0.06 = [...] | | | | | | [employer] | | | | | [...] | + + + + + | [facility] | [address] | [place], [place] | [phone] | | [facility] | | [address] | | | - LABORATORY | | | | + + + + + ECG 12 lead (10/26/2019 7:37 AM PDT) + + + + + + | Component | Value | Ref Range | Performed | Pathologist | | | | | At | Signature | + + + + + + | VENTRICULAR | 57 | BPM | [facility] | | | RATE EKG | | | | | + + + + + + | ATRIAL RATE | 57 | BPM | [facility] | | + + + + + + | P-R | 290 | ms | [facility] | | | INTERVAL | | | | | + + + + + + | QRS | 150 | ms | [facility] | | | DURATION | | | | | + + + + + + | Q-T | 468 | ms | [facility] | | | INTERVAL | | | | | + + + + + + | Q-T | 455 | ms | [facility] | | | INTERVAL | | | | | | (CORRECTED) | | | | | + + + + + + | P WAVE AXIS | 65 | degrees | [facility] | | + + + + + + | QRS AXIS | -56 | degrees | [facility] | | + + + + + + | T AXIS | 28 | degrees | [facility] | | + + + + + + | INTERPRETAT | Sinus bradycardia with | | [facility] | | | ION TEXT | 1st degree AV block and | | | | | | variable CT intervals | | | | | | with occasional | | | | | | dropped beats | | | | | | (borderline criteria for | | | | | | Mobitz I)Premature | | | | | | ventricular complexRight | | | | | | bundle branch blockLeft | | | | | | anterior fascicular | | | | | | blockAbnormal ECGNo | | | | | | previous ECGs | | | | | | availableConfirmed by | | | | | | BRISEIDA SHAH MD ([id number]) | | | | | | on 10/27/2019 6:13:54 AM | | | | + + [...] | | | + +---------+ + + Magnesium (10/26/2019 5:25 AM PDT) + +-------+ + + + | Component | Value | Ref Range | Performed | Pathologist | | | | | At | Signature | + +-------+ + + + | Magnesium | 2.0 | 1.6 - 2.6 mg/dL | [facility] | | | | | | [facility] [...] | + + + + + | [facility] | [address] | [place] | [phone] | | [facility] | | [address] | | | - LABORATORY | | [...] | | | | mmol/L | [facility] | | | | | | MEDICAL | | | | | | CENTER - | | | | | | LABORATORY | | + + + + + + | K | 4.0 | 3.4 - 5.1 | [facility] | | | | | mmol/L | [facility] | | | | | | MEDICAL | | | | | | CENTER - | | | | | | LABORATORY | | + + + + + + | Cl | 105 | 98 - 107 mmol/L | [facility] | | | | | | [facility] | | | | | | MEDICAL | | | | | | CENTER - | | | | | | LABORATORY | | + + + + + + | CO2 | 26 | 20 - 31 mmol/L | [facility] | | | | | | [facility] | | | | | | MEDICAL | | | | | | CENTER - | | | | | | LABORATORY | | + + + + + + | Anion Gap | 9 | 3 - 16 mmol/L | [facility] | | | | | | [facility] | | | | | | MEDICAL | | | | | | CENTER - | | | | | | LABORATORY | | + + + + + + | Glucose | 102 | 60 - 106 mg/dL | [facility] | | | | | | [facility] | | | | | | MEDICAL | | | | | | CENTER - | | | | | | LABORATORY | | + + + + + + | BUN | 21 | 9 - 23 mg/dL | [facility] | | | | | | [facility] | | | | | | MEDICAL | | | | | | CENTER - | | | | | | LABORATORY | | + + + + + + | Creatinine | 1.13 | 0.70 - 1.30 | [facility] | | | | | mg/dL | [facility] | | | | | | [facility] | | | | | | CENTER - | | | | | | LABORATORY | | + + + + + + | eGFR if not | >60Comment: GLOMERULAR | >=60 | [facility] | | | | FILTRATION | mL/min/1.73m2 | [facility] | | | [place] | RATE,ESTIMATED | | MEDICAL | | | | mL/min/1.79b5Taqj than | | CENTER - | | [...] | | | | | mg/dL | [facility] | | | | | | MEDICAL | | | | | | CENTER - | | | | | | LABORATORY | | + + + + + + | Albumin | 4.3 | 3.2 - 4.8 g/dL | [facility] | | | | | | [facility] | | | | | | MEDICAL | | | | | | CENTER - | | | | | | LABORATORY | | + + + + + + | Bilirubin | 0.6 | 0.3 - 1.2 mg/dL | [facility] | | | Total | | | [facility] | | | | | | MEDICAL | | | | | | CENTER - | | | | | | LABORATORY | | + + + + + + | Total | 7.2 | 5.7 - 8.2 g/dL | [facility] | | | Protein | | | [facility] | | | | | | MEDICAL | | | | | | CENTER - | | | | | | LABORATORY | | + + + + + + | AST | 20 | 0 - 34 U/L | [facility] | | | | | | [facility] | | | | | | MEDICAL | | | | | | CENTER - | | | | | | LABORATORY | | + + + + + + | ALT | 18 | 10 - 49 U/L | [facility] | | | | | | [facility] | | | | | | MEDICAL | | | | | | CENTER - | | | | | | LABORATORY | | + + + + + + | Alkaline | 69 | 46 - 116 U/L | [facility] | | | Phosphatase | | | [facility] | | | | | | MEDICAL | | | | | | CENTER - | | | | | | LABORATORY | | + + + + + + | Globulin | 2.9 | 2.1 - 3.8 g/dL | [facility] | | | | | | [facility] | | | | | | MEDICAL | | | | | | CENTER - | | | | | | LABORATORY | | + + + + + + | Albumin/Yi | 1.5 | 0.8 - 1.9 | [facility] | | | bulin Ratio | | | [facility] | | | | | | MEDICAL | | | | | | CENTER - | | | | | | LABORATORY | | + + + + + + | BUN/Creatin | 18.6 | | [facility] | | | ine Ratio | | | [facility] | | | | | | MEDICAL [...] + | [facility] | [address] | [place] | [phone] | | [facility] | | [address] | | | - LABORATORY | | | | + + + + + Troponin I (10/26/2019 5:25 AM PDT) + + + + + + | Component | Value | Ref Range | Performed | Pathologist | | | | | At | Signature | + + + + + + | Troponin I | 1.48 ()Comment: | <0.06 ng/mL | [facility] | | | | Comment:Reference | | [facility] | | | | Ranges: 0.00-0.06 = [...] | | | | | | [employer] | | | | | [...] by | | | | | | Matilde Velásquez RN on | | | | | | 10/26/2019 at 6:13 AM by | | | | | | Bob Lund. | | | | + + + + + + + + | Specimen | + + | Blood | + + + + + + + | Performing | Address | City/State/Zipcode | Phone Number | | Organization | | | | + + + + + | [facility] | [address] | [place] | [phone] | | [facility] | | [address] | | | - LABORATORY | | [...] | | A1c | | | [facility] | | | | | | MEDICAL | | | | | | CENTER - | | | | | | LABORATORY | | + +-------+ + + + | Estimated | 114 | mg/dL | [facility] | | | Average | | | [facility] | | | Glucose | | | [...] | + + + + + | [facility] | [address] | [place] | [phone] | | [facility] | | [address] | | | - LABORATORY | | | | + + + + + Lipid Panel (10/26/2019 5:25 AM PDT) + +--------+ + + + | Component | Value | Ref Range | Performed | Pathologist | | | | | At | Signature | + +--------+ + + + | Triglycerid | 42 | <=150 mg/dL | [facility] | | | es | | | [facility] | | | | | | MEDICAL | | | | | | CENTER - | | | | | | LABORATORY | | + +--------+ + + + | Cholesterol | 186 | <=200 mg/dL | [facility] | | | | | | [facility] | | | | | | MEDICAL | | | | | | CENTER - | | | | | | LABORATORY | | + +--------+ + + + | HDL | 68 (H) | 40 - 60 mg/dL | [facility] | | | | | | [facility] | | | | | | MEDICAL | | | | | | CENTER - | | | | | | LABORATORY | | + +--------+ + + + | Chol/HDL | 2.7 | | [facility] | | | Ratio | | | [facility] | | | | | | [facility] | | | | | | CENTER - | | | | | | LABORATORY | | + +--------+ + + + | LDL, | 110 | <=130 mg/dL | [facility] | | | Calculated | | | [facility] | | | | | | MEDICAL [...] [facility] | [address] | [place] | [phone] | | [facility] | | [address] | | | - LABORATORY | | | | + + + + + documented in this encounter Visit Diagnoses + + | Diagnosis | + + | NSTEMI (non-ST elevated myocardial infarction) (HCC) Acute myocardial infarction, | | subendocardial infarction, episode of care unspecified | + + documented in this encounter Administered Medications + +--------+ +-------+------+------+ | Medication Order | MAR | Action | Dose | Rate | Site | | | Action | Date | | | | + +--------+ +-------+------+------+ | amLODIPine (NORVASC) tablet 10 | Given | 10/28/19 | 10 mg | | | | mg 10 mg, Oral, DAILY, First | | 20 7:49 | | | | | dose (after last modification) on | | AM PDT | | | | | 10/28/19 at 0900 | | | | | | + +--------+ +-------+------+------+ +---+---+ | | | +---+---+ + +-------+ +-------+---+---+ | aspirin chewable tablet 81 mg | Given | 10/28/19 | 81 mg | | | | 81 mg, Oral, DAILY, First dose on | | 20 7:50 | | | | | 10/27/19 at 0900, Notify | | AM PDT | | | | | provider if unable to tolerate, | | | | | | + +-------+ +-------+---+---+ +-------+ +-------+---+---+ | Given | 10/27/19 | 81 mg | | | | | 20 9:14 | | | | | | AM PDT | | | | +-------+ +-------+---+---+ +---+---+ | | | +---+---+ + +-------+ +-------+---+---+ | atorvaSTATin (LIPITOR) tablet | Given | 10/27/19 | 80 mg | | | | 80 mg 80 mg, Oral, NIGHTLY, | | 20 9:54 | | | | | First dose on 10/26/19 at 2100 | | PM PDT | | | | + +-------+ +-------+---+---+ +-------+ +-------+---+---+ | Given | 10/26/19 | 80 mg | | | | | 20 9:34 | | | | | | PM PDT | | | | +-------+ +-------+---+---+ +---+---+ | | | +---+---+ + +-------+ +-------+---+---+ | clopidogrel (PLAVIX) tablet 75 | Given | 10/28/19 | 75 mg | | | | mg 75 mg, Oral, DAILY, First | | 20 7:50 | | | | | dose on 10/27/19 at 0900 | | AM PDT | | | | + +-------+ +-------+---+---+ +-------+ +-------+---+---+ | Given | 10/27/19 | 75 mg | | | | | 20 9:14 | | | | | | AM PDT | | | | +-------+ +-------+---+---+ +---+---+ | | | +---+---+ + +-------+ +--------+---+---+ | fentaNYL (PF) injection ONCE | Given | 10/27/19 | 50 mcg | | | | PRN, Starting 10/27/19 at | | 20 12:28 | | | | | 1216, Intra-op | | PM PDT | | | | + +-------+ +--------+---+---+ +-------+ +--------+---+---+ | Given | 10/27/19 | 25 mcg | | | | | 20 12:22 | | | | | | PM PDT | | | | +-------+ +--------+---+---+ | Given | 10/27/19 | 25 mcg | | | | | 20 12:21 | | | | | | PM PDT | | | | +-------+ +--------+---+---+ +---+---+ | | | +---+---+ + +-------+ +--------+---+---+ | fentaNYL (PF) injection ONCE | Given | 10/27/19 | 50 mcg | | | | PRN, Starting 10/27/19 at | | 20 12:35 | | | | | 1235, Intra-op | | PM PDT | | | | + +-------+ +--------+---+---+ +---+---+ | | | +---+---+ + +-------+ +--------+---+---+ | heparin 1,000 units/mL | Given | 10/27/19 | 5,000 | | | | injection ONCE PRN, Starting Sun | | 20 11:57 | Units | | | | 10/27/19 at 1150, Intra-op | | AM PDT | | | | + +-------+ +--------+---+---+ +-------+ +--------+---+---+ | Given | 10/27/19 | 5,000 | | | | | 20 11:50 | Units | | | | | AM PDT | | | | +-------+ +--------+---+---+ +---+---+ | | | +---+---+ + +-------+ +---------+---+---+ | iohexol (OMNIPAQUE 350) 350 | Given | 10/27/19 | 128 mLs | | | | mg/mL injection ONCE PRN, | | 20 12:23 | | | | | Starting 10/27/19 at 1223, | | PM PDT | | | | | Intra-op | | | | | | + +-------+ +---------+---+---+ +---+---+ | | | +---+---+ + +-------+ +-------+---+---+ | lidocaine buffered 0.9% | Given | 10/27/19 | 3 mLs | | | | injection ONCE PRN, Starting Sun | | 20 11:46 | | | | | 10/27/19 at 1146, Intra-op | | AM PDT | | | | + +-------+ +-------+---+---+ +---+---+ | | | +---+---+ + +-------+ +--------+---+---+ | midazolam (VERSED) 1 mg/mL | Given | 10/27/19 | 0.5 mg | | | | injection ONCE PRN, Starting Sun | | 20 11:48 | | | | | 20 at 1148, Intra-op | | AM PDT | | | | + +-------+ +--------+---+---+ +---+---+ | | | +---+---+ + +-------+ +-------+---+---+ | niCARdipine in saline (CARDENE) | Given | 10/27/19 | 3 mLs | | | | 100 mcg/mL syringe ONCE PRN, | | 20 12:16 | | | | | Starting 10/27/19 at 1149, | | PM PDT | | | | | Intra-op | | | | | | + +-------+ +-------+---+---+ +-------+ +-------+---+---+ | Given | 10/27/19 | 3 mLs | | | | | 20 11:49 | | | | | | AM PDT | | | | +-------+ +-------+---+---+ +---+---+ | | | +---+---+ + +-------+ +---------+---+---+ | nitroglycerin 100 mcg/mL | Given | 10/27/19 | 300 mcg | | | | syringe ONCE PRN, Starting Sun | | 20 12:22 | | | | | 10/27/19 at 1149, Intra-op | | PM PDT | | | | + +-------+ +---------+---+---+ +-------+ +---------+---+---+ | Given | 10/27/19 | 300 mcg | | | | | 20 12:16 | | | | | | PM PDT | | | | +-------+ +---------+---+---+ | Given | 10/27/19 | 400 mcg | | | | | 20 12:14 | | | | | | PM PDT | | | | +-------+ +---------+---+---+ +---+---+ | | | +---+---+ documented in this encounter
--- OUTSIDE RECORDS SUMMARY | ~2019-12-03 | XMS | Encounter Summary ---
Demographics + + + | Address | [address] | | | [place] [address] | + + + | Home Phone | | + + + | Preferred Language | Unknown | + + + | Marital Status | Unknown | + + + | Jainism Affiliation | [id number] | + + + | Race | Unknown | + + + | Ethnic Group | Unknown | + + + Author + + + | Author | [facility] | | | and [place] | + + + | Organization | [facility] | | | and [place] | + + + | Address | Unknown | + + + | Phone | Unavailable | + + + Support + + + + + | Name | Relationship | Address | Phone | + + + + + | Nixon Bello | ECON | [address] [facility] | | | | | [place] | | | | | [address] | | + + + + + Care Team Providers + +------+ + | Care Trouble Lineman Name | Role | Phone | + +------+ + | Trell Osborne MD | PCP | | + +------+ + Reason for Visit +--------+--------+ + | Reason | Onset | Comments | | | Date | | +--------+--------+ + | Other | 10/31/ | medication and bruising | | | 2019 | | +--------+--------+ + Encounter Details +--------+ + + + + | Date | Type | Department | Care Team | Description | +--------+ + + + + | 10/31/ | Telephone | [facility] | Diego Garg MD | Other (medication | | 2020 | | CARDIOLOGY [address] | and bruising) | | | | [place], | [place] | | | | | [place] [address] | [address] | | | | | [phone] | | | +--------+ + + + [...] this encounter Miscellaneous Notes Telephone Encounter - Vanesa Mcelroy RN - 11/01/2019 2:00 PM PDTScott called today to r nikky that he noticed a bruise on Robin's abdomen today and he is concerned because he is n ew on plavix. He states that the bruise is about 2x6 inches and is purple and brown. He is reassured that most likely this bruising is not from the plavix but from the heparin received while he was in the hospital. He is advised on what to watch for and when to [facility]. ...........................................Vanesa Mcelroy RN, o n 11/01/19 at 2:03 PM documented in this encounter Plan of Treatment Not on filedocumented as of this encounter Visit Diagnoses Not on filedocumented in this encounter"
--- OUTSIDE RECORDS SUMMARY | ~2019-12-03 | XMS | Encounter Summary ---
Demographics + + + | Address | [address] | | | [place] [address] | + + + | Home Phone | | + + + | Preferred Language | Unknown | + + + | Marital Status | Unknown | + + + | Presybeterian Affiliation | 1073 | + + + | Race | Unknown | + + + | Ethnic Group | Unknown | + + + Author + + + | Author | [facility] | | | and [place] | + + + | Organization | [facility] | | | and [place] | + + + | Address | Unknown | + + + | Phone | Unavailable | + + + Support + + + + + | Name | Relationship | Address | Phone | + + + + + | Nixon Bello | ECON | [address] | | | | | [place] | | | | | [address] | | + + + + + Care Team Providers + +------+ + | Care Stove Fitter Name | Role | Phone | + +------+ + | Trell Osborne MD | PCP | | + +------+ + Encounter Details +--------+ + + + + | Date | Type | Department | Care Team | Description | +--------+ + + + + | 11/04/ | Telephone | [facility] | Diego Garg MD | | | 2019 | | MED CTR CV INTRA OP | [address] | | | | | [address] | [place], [place] | | | | | [place], [place] | [address] | | | | | [address] | | | | | | [phone] | | | +--------+ + + + [...]
--- OUTSIDE RECORDS SUMMARY | ~2019-12-03 | XMS | Encounter Summary ---
Demographics + + + | Address | [address] | | | [place] [address] | + + + | Home Phone | | + + + | Preferred Language | Unknown | + + + | Marital Status | Unknown | + + + | Jewish Affiliation | 1073 | + + + | Race | Unknown | + + + | Ethnic Group | Unknown | + + + Author + + + | Author | [facility] | | | and [place] | + + + | Organization | [facility] | | | and [place] | + + + | Address | Unknown | + + + | Phone | Unavailable | + + + Support + + + + + | Name | Relationship | Address | Phone | + + + + + | Nixon Bello | ECON | [address] [facility] | | | | | [place] | | | | | [address] | | + + + + + Care Team Providers + +------+ + | Care Magazine Designer Name | Role | Phone | + +------+ + | Trell Osborne MD | PCP | | + +------+ + Reason for Referral Evaluate & Treat (Routine) +--------+ + + + + + | Status | Reason | Specialty | Diagnoses / | Referred By | Referred To | | | | | Procedures | Contact | Contact | +--------+ + + + + + | Closed | Specialty | Cardiology | Diagnoses | Ernst, | Diego Garg | | | Services | | NSTEMI | MD Cheyenne | MD Fredy [address] | | | Required | | (non-ST | [address] | [address] | | | | | elevated | [place] | [place], | | | | | myocardial | [place], [place] | [place] [address] | | | | | infarction) | [address] | Phone: | | | | | ([facility]) | Phone: | [phone] | | | | | Procedures | [phone] | Fax: | | | | | EQUIPMENT DRIVER/HOSP FUP | Fax: | [phone] | | | | | ([place]) HOLTER | [phone] | | | | | | PRIOR | | | +--------+ + + + + + Evaluate & Treat (Routine) + + + + + + + | Status | Reason | Specialty | Diagnoses / | Referred By | Referred To | | | | | Procedures | Contact | Contact | + + + + + + + | Pending | Specialty | Cardiac | Diagnoses | Allyson, | Kevin Cardiac | | Review | Services | Rehabilitatio | NSTEMI | Diego Daniel MD | | | | Required | n | (non-ST | [address] | Rehabilitatio | | | | | elevated | [address] | [address] | | | | | myocardial | [place], | [place] | | | | | infarction) | [place] [address] | [place], [place] | | | | | (HCC) | Phone: | [phone] | | | | | Procedures | [phone] | Phone: | | | | | CARDIAC | Fax: | [phone] | | | | | REHAB | [phone] | Fax: | | | | | | | [phone] | + + + + + + + Reason for Visit Auth/Cert +--------+--------+ + [...] +--------+--------+ + + + + Encounter Details +--------+ + + + + | Date | Type | Department | Care Team | Description | +--------+ + + + + | 10/25/ | Hospital | [facility] | Diogo, | NSTEMI (non-ST | | 2019 - | Encounter | MED CTR ICU [address] | MD Grace [address] | elevated myocardial | | | | [place], | [address] [place] | infarction) (HCC) | | 10/27/ | | [place] [address] | [place] [address] | (Primary Dx); Other | | 2019 | | [phone] | [phone] | hyperlipidemia; | | | | | | Essential | | | | | Diego Garg MD | hypertension; | | | | | [address] | Alzheimer's dementia | | | | | [place] [facility], [place] | without behavioral | | | | | [address] | disturbance, | | | | | | unspecified timing | | | | | | of dementia onset | | | | | | (HCC) | +--------+ + + + + Social [...] ADMITTING DIAGNOSIS: NSTEMI (non-ST elevated myocardial infarction) ([facility]) PRIMARY CARE PROVIDER: Trell Osborne MD DISCHARGE [...] because of chest pains on referral from [facility]. Elevated troponins prompted heart catheterization showed his [...] the person can do daily tasks. The [facility] provider may ask family or close friends [...] s. Some people benefit from having a environmental research project manager help to prevent weight loss. Caring for someone with Alzheimer A person with Alzheimer will need more caregiving over time. Talk with your healthcare prov ider about caregiving resources. Date Last Reviewed: 09/03/201719995986-9467 [employer]. [address] [place] [address], [place] [address]. All righ ts reserved. This information is [...] your doctor of all medicines (prescription and hvkp-ted-bdvgakz), vitamins, herbs, and supplements that you are [...] pressure is used, the doctor (or an nursing home assistant) will hold pressure on the insertion site so t hat a clot will form on the outside of the blood vessel to prevent bleeding. Once the bleedi ng has stopped, a very tight bandage will be placed on the site. 22. Staff will help you slide from the table onto a stretcher so that you can be taken to [facility] recovery area. NOTE: If the insertion was [...] recovery room for observation or returned to our hospital room. You will stay flat in [...] to pay for the test or procedure [id number] [employer]. [address] [place] [address]. All [facility] ts reserved. This information is not intended [...] this chart may have been created with D[employer] voice recognition software. Occasi onal wrong-word or [...] can caus e othertypes ofartery diseases. The [place] [employer] recommends that all adults ages 20 and older have their chol esteroland other traditional risk factorschecked every 4 to 6 years.Work with your [place] provider to find out your risk for [...] an y illegal drugs you may use. 6069-6862 [employer]. [address] [place] [address], [place] [address]. All righ ts reserved. This information is [...] the person can do daily tasks. The [facility] provider may ask family or close friends [...] s. Some people benefit from having a environmental research project manager help to prevent weight loss. Caring for someone with Alzheimer A person with Alzheimer will need more caregiving over time. Talk with your healthcare prov ider about caregiving resources. Date Last Reviewed: 09/03/201719991691-8447 [employer]. [address] [place] [address]. All righ ts reserved. This information is [...] your doctor of all medicines (prescription and tvbv-hky-ikyxval), vitamins, herbs, and supplements that you are [...] pressure is used, the doctor (or an nursing home assistant) will hold pressure on the insertion site so t hat a clot will form on the outside of the blood vessel to prevent bleeding. Once the bleedi ng has stopped, a very tight bandage will be placed on the site. 22. Staff will help you slide from the table onto a stretcher so that you can be taken to [facility] recovery area. NOTE: If the insertion was [...] recovery room for observation or returned to [facility] hospital room. You will stay flat [...] to pay for the test or procedure [id number] [employer]. [address] [place] [address]. All righ ts reserved. This information is not intended as a substitute for professional medical care. Always follow your healthcare professional's instructions. AttachmentsThe following attachments cannot be sent through Care Everywhere.Cholesterol, Un derstanding Fat and (Chilean)Cholesterol, Lifestyle Changes to Control (Chilean)Diet, Low Fa t (Chilean)Diet, Low-Salt (Chilean)documented in this encounter Medications at Time of Discharge + + + +---------+ + + | Medication | Sig | Dispensed | Refills | Start | End Date | | | | | | Date | | + + + +---------+ + + | amLODIPine | Take 1 tablet by | 30 | 3 | 05//20 | | | (NORVASC) 10 MG | mouth Daily. | tablet | | 20 | | | tablet | | | | | | + + + +---------+ + + | aspirin 81 mg | Chew and swallow 1 | 30 | 3 | / | | | chewable tablet | tablet Daily. | tablet | | 20 | | + + + +---------+ + + | atorvaSTATin | Take 1 tablet by | 30 | 3 | 05//20 | | | (LIPITOR) 80 MG | mouth nightly. | tablet | | 20 | | | tablet | | | | | | + + + +---------+ + + | clopidogrel | Take 1 tablet by | 30 | 3 | 05//20 | | | (PLAVIX) 75 mg | [...] all questions answered. Family at bedside. Allegra torres RN cEma Hawthorne R N - 10/27/2019 4:48 PM PDTPt sleepy on return from carpenter/labor, but woke up to eat. Does not [...] note might be different from th williams beltre. [facility] [place] HOSPITALIST PROGRESS NOTE Patient: Robin Dumont : 1945: Age: 74 y.o. MedRec: [id number] Admission date: 10/26/2019 Hospital day # : [...] to 2.2. Patient scheduled for cath today (Allyson). Continue aspirin, statin. Started Plavix. Patient denies [...] 80 mg Oral Nightly Grace Lind MD 80 mg a t 10/26/194 clopidogrel (PLAVIX) tablet 75 mg 75 mg Oral Daily Diego Garg MD 75 mg at 0 0914 diazePAM (VALIUM) tablet 5 mg 5 mg Oral Banquet Prep Cook Diego Garg MD diphenhydrAMINE (BENADRYL) tablet 25 mg 25 mg Oral Banquet Prep Cook Diego Garg MD morphine injection 2 mg [...] L/min Cheyenne Dukes MD 10/27/2019 9:47 AM [facility] documented in this enco unter H&P [...] such, he will be deemed Full Code. [facility] Documentation This patient will be placed in observation status. [facility] Documentation I expect this patient will [...] 10.1 Recent Labs 10/26/19 0525 TROPONIN 1.48* was initially seen by me at 06:15 [...] this chart may have been created with Dorm[employer] voice recognition software. Occasi onal wrong-word or [...] file Gets together: Not on file Attends cheondoism service: Not on file Active member of [...] mg Oral BID PRN Grace Lind MD [facility] list of outpatient meds: No medications prior [...] associated with acute m yocardial infarction. The [place] [employer] (ACC) recommends a decision [...] right bundle branch block. There is long [place] with occasional dropped beats. Left anterior hemiblock is noted with no acute ST-T changes. DIAGNOSES AND ASSESSMENTS: 1. NSTEMI with elevation troponins and no acute ST-T changes 2. Conduction defects 3. Dementia PLAN OR RECOMMENDATIONS: Patient is a candidate for invasive evaluation treatment for his N STEMI. However this is limited because of his dementia and I have contacted his son Nixon Neal [phone] who is his power of aviation maintenance instructor to discuss the level of care because of his progressive dementia. Right. Because of his conduction defect and bradycardia. Amlodipine has been started He with Lovenox, aspirin, Plavix and Lipitor in the a.m. I appreciate the opportunity of participating in the care of this patient. Diego Garg MD, [facility], 10/26/2019 8:44 AM documented in this [...] 12:38 PM P DT BRIEF OPERATIVE NOTE [facility] Pt. Name/Age/: Robin Weathers Tim 74 y.o. 1945 [facility]. Record Number: [id number] Date of admission: 10/26/2019 Date of Operation/Procedure: 10/27/2019 Preoperative Diagnosis: chest pain Postoperative Diagnosis: cad Surgeon: Diego Garg MD Tap And Die Maker Technician: None Anesthesia Provider(s): No anesthesia staff entered. [...] Implant Name Type Inv. Item Serial No. Head Shipper Lot No. LRB No. Used STENT JIMI SYNERGY MR 3.0 X 20 - [id number] Stent STENT JIMI SYNERGY MR 3.0 X 20 [employer] [facility] [id number] N/A 1 Counts: Instrument, sponge, and needle [...] RFA. NS IV started per Dr. Garg. Nixon Polanco came in and signed consent for Angiogr am. Pre meds given prior to transfer to carpenter/labor. Patient transferred to carpenter/labor around 1 145. Anticipate going to ICU [...] done and will continue to monitor. lan of [facility], NICOLAS Siddiqui - 10/26/2019 6:51 PM PDTPatien t alert and oriented to self. No complaints of chest pain. Confused but redirectable. Too k Tele leads off multiple times during the day. Stands up and ambulates without calling for help. Telesitter was put in place but patient did not listen to telesitter instructions. [place] was visiting in the morning. Patient was seen by English Adjunct Faculty, Dr. Garg. Plan is to revaluate in the morning to determine need for angiogram. Bradycardia, and elevated tropon in levels reported to Doctor. Patient now has a sitter to assist with redirection. Electro nically signed by Artur Andrew RN at 10/26/2019 6:57 PM PDTPlan [facility] - 10/26/2019 10:36 AM PDTMet with patient and son Nixon at bedside to discuss disch arge planning. Son states that they recently moved to [place]. Son states that they just s old their home at the end of the winter and planned to travel the [facility] in their unt il the COVID restrictions were implemented, that is why they moved to a family's house in [place]. Prior to hospitalization, son states that the patient was independent with all ADL' s, would walk several miles a day. Patient did not use DME and does not have any DME or home oxygen. Son is with patient 26/12. Patient's PCP is Dr. Barry at [facility] in [facility]. Son wants to keep e PCP in [place], states he has been seeing this PCP for a few years and knows patient randa robledo. Son states their transient lifestyle doesn't justify getting a new PCP in [place] as th is is not their permanent housing. Plan: Return to [place] with son when medically stable. Electronically signed [...] | | | | | | infarction) ([facility]) | | + + +--------+ + + | Ambulatory referral | Outpatient | Routin | NSTEMI (non-ST | Ordered: 10/28/2019 | | to Cardiology | Referral | e | elevated myocardial | | | | | | infarction) ([facility]) | | + + +--------+ + + [...] | | | | BRISEIDA SHAH MD ([id number]) | | | | | | on [...] [facility] | | [facility] | [facility] | | | [facility] | [facility] - | | | | | | LABORATORY | | + +-------+ + + + | RBC | 5.04 | 4.30 - 5.70 | [facility] | | | | | M/uL | [facility] | | | | | | [facility] | | | | | | CENTER - | | | | | | LABORATORY | | + +-------+ + + + | Hemoglobin | 14.8 | 13.5 - 18.0 | [facility] | | | | | g/dL | [facility] | | | | | | [facility]ICAL | | | | | | CENTER - | | | | | | LABORATORY | | + +-------+ + + + | Hematocrit | 45.7 | 40.0 - 51.0 % | [facility] | | | | | | [facility] | | | [...] | | | | WBCs | [facility] | | | | | | MEDICAL | | | | | | CENTER - | | | | | | LABORATORY | | + +-------+ + + + | Absolute | 0.00 | 0.00 - 0.01 | [facility] | | | nRBC | | K/uL | [facility] | | | | [...] [address] | [place] | [phone] | | [facility] | | [address] | | | - LABORATORY | | [...] | | | | | mmol/L | [facility] | | | | [...] 16 | 9 - 23 mg/dL | [facility] | | | | | | [facility] | | | | | | MEDICAL | | | | | | CENTER - | | | | | | LABORATORY | | + + + + + + | Creatinine | 1.08 | 0.70 - 1.30 | [facility] | | | | | mg/dL | [facility] | | | | | | MEDICAL | | | | | | CENTER - | | | | | | LABORATORY | | + + + + + + | eGFR if not | >60Comment: GLOMERULAR | >=60 | [facility] | | | | FILTRATION | mL/min/1.73m2 | [facility] | | | MALDIVIAN | RATE,ESTIMATED | | MEDICAL | | | | mL/min/1.03d9Czrq than | | CENTER - | | [...] | | | | mg/dL | [facility] | | | | [...] [address] | [place] | [phone] | | [facility] | | [address] | | | - LABORATORY | | [...] | | | | BRISEIDA SHAH MD ([id number]) | | | | | | on [...] | | | medications administered by the Maxillofacial Surgeon nurse under my supervision. | | | [...] + + | Performing | Address | City/State/[facility] | Phone Number | | [...] + | [facility] | [address] | [place] | [phone] | | [facility] | | [address] | | | - LABORATORY | | [...] | Time | | seconds | [facility] | | | | | | MEDICAL | | | | | | CENTER - | | | | | | LABORATORY | | + + + + + + | INR | 1.0Comment: Usual Oral | 0.9 - 1.1 | [facility] | | | | Anticoagulation Range: | | [facility] | | | | 2.0 - 3.0High [...] + + | [facility] | [address] | [place] | [phone] | | [facility] | | [address] | | | - LABORATORY | | [...] | | | Comment:Reference | | [facility] | | | | Ranges: 0.00-0.06 [...] | | | | | | [employer] | | | | | [...] [address] | [place] | [phone] | | [facility] | | [address] | | | - LABORATORY | | [...] | | | | | | variable [place] intervals | | | | | | with occasional | | | | | | dropped beats | | | | | | (borderline criteria for | | | | | | Milo I)Premature | | | | | | ventricular complexRight | | | | | | bundle branch blockLeft | | | | | | anterior fascicular | | | | | | blockAbnormal ECGNo | | | | | | previous ECGs | | | | | | availableConfirmed by | | | | | | BRISEIDA SHAH MD ([id number]) | | | | | | on [...] [facility] | | | | | | ST. [...] + + | [facility] | [address] | [place] | [phone] | | [facility] | | [address] | | | - LABORATORY | | [...] | | | | | mmol/L | [facility] | | | | | | MEDICAL | | | | | | CENTER - | | | | | | LABORATORY | | + + + + + + | K | 4.0 | 3.4 - 5.1 | [facility] | | | | | mmol/L | [facility] | | | | [...] 21 | 9 - 23 mg/dL | [facility] | | | | | | [facility] | | | | | | MEDICAL | | | | | | CENTER - | | | | | | LABORATORY | | + + + + + + | Creatinine | 1.13 | 0.70 - 1.30 | [facility] | | | | | mg/dL | [facility] | | | | | | MEDICAL | | | | | | CENTER - | | | | | | LABORATORY | | + + + + + + | eGFR if not | >60Comment: GLOMERULAR | >=60 | [facility] | | | | FILTRATION | mL/min/1.73m2 | [facility] | | | MALDIVIAN | RATE,ESTIMATED | | MEDICAL | | | | mL/min/1.89v9Wyin than | | CENTER - | | [...] | | | | mg/dL | [facility] | | | | [...] [address] | [place] | [phone] | | [facility] | | [address] | | | - LABORATORY | | | | + + + + + Troponin I (10/26/2019 5:25 AM PDT) + + + + + + | Component | Value | Ref Range | Performed | Pathologist | | | | | At | Signature | + + + + + + | Troponin I | 1.48 ()Comment: | <0.06 ng/mL | [facility] | | | | Comment:Reference | | [facility] | | | | Ranges: 0.00-0.06 [...] | | | | | | [employer] | | | | | [...] + + | Performing | Address | City/State/[facility]ode | Phone Number | | Organization | | | | + + + + + | [facility] | [address] | [place] | [phone] | | [facility] | | [address] | | | - LABORATORY | | [...] | [facility] | [address] | [place] | [phone] | | [facility] | | [address] | | | - LABORATORY | | | | + + + + + Lipid Panel (10/26/2019 5:25 AM PDT) + +--------+ + + + | Component | Value | Ref Range | Performed | Pathologist | | | | | At | Signature | + +--------+ + + + | Triglycerid | 42 | <=150 mg/dL | [facility] | | | es | | | [facility] | | [...] | | Ratio | | | [facility] | | | | | | MEDICAL | | | | | | CENTER - | | | | | | LABORATORY | | + +--------+ + + + | LDL, | 110 | <=130 mg/dL | [facility] | | | Calculated | | | [facility] | | [...] ST. | [address] | [place] | [phone] | | [facility] | | [address] | | | - LABORATORY | | | | + + + + + documented in this encounter Visit Diagnoses + + | Diagnosis | + + | NSTEMI (non-ST elevated myocardial infarction) (HCC) - Primary Acute myocardial | | infarction, subendocardial infarction, episode of care unspecified | + + | Other hyperlipidemia | + + | Essential hypertension Unspecified essential hypertension | + + | Alzheimer's dementia without behavioral disturbance, unspecified timing of dementia | | onset (HCC) | + + documented in this encounter [...] +---+---+ | | | +---+---+ + +-------+ +------+---+---+ | amLODIPine (NORVASC) tablet 5 | Given | 10/27/19 | 5 mg | | | | mg 5 mg, Oral, DAILY, First dose | | 20 9:14 | | | | | on 10/26/19 at 0915 | | AM PDT | | | | + +-------+ +------+---+---+ +---+---+ | | | +---+---+ + +-------+ [...] +---+---+ | | | +---+---+ + +-------+ + +---+---+ | carvedilol (COREG) tablet 3.125 | Given | 10/26/19 | 3.125 mg | | | | mg 3.125 mg, Oral, 2 TIMES | | 20 8:13 | | | | | DAILY WITH BREAKFAST & DINNER, | | AM PDT | | | | | First dose on 10/26/19 at 0800 | | | | | | + +-------+ + +---+---+ +---+---+ | | | +---+---+ + +-------+ +--------+---+---+ | clopidogrel (PLAVIX) tablet 300 | Given | 10/26/19 | 300 mg | | | | mg 300 mg, Oral, ONCE, Sat | | 20 8:13 | | | | | 10/26/19 at 0700, For 1 dose | | AM PDT | | | [...] +---+---+ | | | +---+---+ + +-------+ +------+---+---+ | diazePAM (VALIUM) tablet 5 mg | Given | 10/27/19 | 5 mg | | | | 5 mg, Oral, CONGRESSIONAL DISTRICT AIDE, Starting Sun | | 20 10:50 | | | | | 10/27/19 at 0820, For 1 dose, | | AM PDT | | | | | Pre-op | | | | | | + +-------+ +------+---+---+ +---+---+ | | | +---+---+ + +-------+ +-------+---+---+ | diphenhydrAMINE (BENADRYL) | Given | 10/27/19 | 25 mg | | | | tablet 25 mg 25 mg, Oral, ON | | 20 10:50 | | | | | CALL, Starting 10/27/19 at | | AM PDT | | | | | 0820, For 1 dose, Pre-op | | | | | | + +-------+ +-------+---+---+ +---+---+ | | | +---+---+ + +-------+ +--------+---+ + | enoxaparin (LOVENOX) 100 mg/mL | Given | 10/26/19 | 100 mg | | Abdomen- | | injection 100 mg 100 mg (rounded | | 20 8:12 | | | RLQ | | from 97 mg = 1 mg/kg | | AM PDT | | | | | 97 kg), Subcutaneous, ONCE, Sat | | | | | | | 10/26/19 at 0645, For 1 dose | | | | | | + +-------+ +--------+---+ + +---+---+ | | | +---+---+ + +---------+ +---------+--------+---+ | sodium chloride 0.9% (NS) bolus | New Bag | 10/27/19 | 776 mLs | 129.3 | | | 776 mL 776 mL (8 mL/kg | | 20 1:25 | | mL/hr | | | 97 kg), Intravenous, Administer | | PM PDT | | | | | over 6 Hours, ONCE, 10/27/19 | | | | | | | at 1330, For 1 dose, 1 ml/kg/hr x | | | | | | | 6 hours, Post-op/Phase II | | | | | | + +---------+ +---------+--------+---+ +---+---+ | | | +---+---+ + +---------+ +---+-------+---+ | sodium chloride 0.9% (NS) | New Bag | 10/27/19 | | 100 | | | infusion at 100 mL/hr, | | 20 9:06 | | mL/hr | | | Intravenous, CONTINUOUS, Starting | | AM PDT | | | | | 10/27/19 at 0730, To begin | | | | | | | on-call to procedure, Pre-op | | | | | | + +---------+ +---+-------+---+ +---+---+ | | | +---+---+ documented in this encounter
[2019-12-03] MEDS ORDERED: ATORVASTATIN CA80 MG PO (08:06)
[2019-12-03] MEDS ORDERED: AMLODIPINE BESY10 MG PO (08:06)
[2019-12-03] MEDS ORDERED: CLINDAMYCIN HC150 MG PO (08:07)
[2019-12-03] MEDS ORDERED: CLOPIDOGREL75 MG PO (08:07)
== END 2019-12-03 10:24 | disposition home or self-care (01) ==
LOC: ED 07:41
DX: M25.531 Pain in right wrist (principal); I25.2 Old myocardial infarction; Z87.891 Personal history of nicotine dependence; Z79.899 Other long term (current) drug therapy
CPT/HCPCS: 73110; 99283-25

== ENCOUNTER 2020-06-16 11:20 | Emergency (ER) | payer MEDICARE ==
[~2020-06-16] VITALS: Ht 193 cm; Wt 104.3 kg
[~2020-06-16 11:20] MED LIST changes: +AMLODIPINE BESY10 MG PO; +ATORVASTATIN CA80 MG PO; +CLINDAMYCIN HC150 MG PO; +CLOPIDOGREL75 MG PO
[2020-06-16] MEDS ORDERED: LISINOPRIL20 MG PO (11:31)
[2020-06-16] MEDS ORDERED: ASPIRIN81 MG PO (11:32)
--- NOTE | 2020-06-16 16:29 | EKG ---
[facility] [address] [facility] [place] [address] Signed Sinus rhythm with marked sinus arrhythmia with 1st degree AV block Right bundle branch block Left anterior fascicular block Bifascicular block Abnormal ECG When compared with ECG of 26-OCT-2019 02:33, premature supraventricular complexes are no longer present Confirmed by IVONNE CRAWFORD DO ([id number]) on 06/16/2020 4:29:18 PM Electronically Signed By: IVONNE CRAWFORD DO 06/16/20 1629 PATIENT NAME: DIANA LOWERY Electrocardiogram DATE OF : 41 PHYSICIAN: IVONNE CRAWFORD DO REPORT #: [id number] REPORT IS CONFIDENTIAL AND NOT TO BE RELEASED WITHOUT AUTHORIZATION
== END 2020-06-16 13:35 | disposition home or self-care (01) ==
LOC: ED 11:20
DX: R07.9 Chest pain, unspecified (principal); I25.2 Old myocardial infarction; F03.90 Unspecified dementia, unspecified severity, without behavioral disturbance, psychotic disturbance, mood disturbance, and anxiety; Z87.891 Personal history of nicotine dependence; Z79.899 Other long term (current) drug therapy; Z79.82 Long term (current) use of aspirin
CPT/HCPCS: 71045; 80053; 83735; 84484; 85025; 93005; 93010; 99285-25

== ENCOUNTER 2020-08-28 20:36 | Emergency (ER) | payer MEDICARE ==
[~2020-08-28] VITALS: Ht 193 cm; Wt 104.3 kg
[~2020-08-28 20:36] MED LIST changes: +ASPIRIN81 MG PO
--- OUTSIDE RECORDS SUMMARY | 2020-08-28 20:38 | XMS ---
PreManage Notification: DIANA LOWERY Security Chemist Steroids Events No recent Security Events currently on file CRITERIA MET - [facility] - 2 Visits in 30 Days CARE PROVIDERS There are no care providers on record at this time. Praveen has no Care Guidelines for this patient. Nikki VISIT COUNT (12 MO.) [address] [place] TOTAL 5 NOTE: Visits indicate total known visits. ED/C VISIT TRACKING (12 MO.) 08/28/2020 20:[address] [facility] [place] TYPE: Emergency COMPLAINT: - DIFFICULTY BREATHING 08/11/2020 13:32 [facility]hela GÓMEZ [place] TYPE: Emergency DIAGNOSES: - Laceration without foreign body of other part of head, initial encounter - Old myocardial infarction - Unspecified dementia without behavioral disturbance - Essential (primary) hypertension 06/16/2020 11:20 [facility] [place] TYPE: Emergency COMPLAINT: - CHEST PAIN DIAGNOSES: - Other custodial (current) drug therapy - [facility] (current) use of aspirin - Old myocardial infarction - Unspecified dementia without behavioral disturbance - Chest pain, unspecified - Personal history of nicotine dependence 12/03/2019 07:42 [facility] [place] TYPE: Emergency COMPLAINT: - PAIN IN LOWER ARMS/ NON INJURY DIAGNOSES: - Personal history of nicotine dependence - Other custodial (current) drug therapy - Old myocardial infarction - Pain in right wrist 10/25/2019 23:[address] [facility] [place] TYPE: Emergency COMPLAINT: - CHEST PAIN DIAGNOSES: - Non-ST elevation (NSTEMI) myocardial infarction - Other long line teamster (current) drug therapy - Personal history of nicotine dependence - Chest pain, unspecified INPATIENT VISIT TRACKING (12 MO.) 10/26/2019 04:[address] [facility] TYPE: Intensive Care DIAGNOSES: - NSTEMI - Essential (primary) hypertension - Other hyperlipidemia - Non-ST elevation (NSTEMI) myocardial infarction - Dementia in other diseases classified elsewhere without behavioral disturbance - Alzheimer's disease, unspecified [email or web address]
--- NOTE | 2020-08-31 19:11 | EKG ---
[facility] [address] [place] [address] Signed Atrial fibrillation with premature ventricular or aberrantly conducted complexes Right bundle branch block Left anterior fascicular block Bifascicular block Abnormal ECG When compared with ECG of 16-JUN-2020 11:25, Atrial fibrillation has replaced Sinus rhythm Vent. rate has increased BY 34 BPM Confirmed by KRISTOFER RENEE MD ([id number]) on 08/31/2020 7:11:37 PM Electronically Signed By: KRISTOFER RENEE MD 08/31/201910 PATIENT NAME: DIANA LOWERY Electrocardiogram DATE OF : 41 PHYSICIAN: KRISTOFER RENEE MD REPORT #: [id number] REPORT IS CONFIDENTIAL AND NOT TO BE RELEASED WITHOUT AUTHORIZATION
== END 2020-08-29 02:21 | disposition short-term general hospital (02) ==
LOC: ED 20:36
DX: I31.3 Pericardial effusion (noninflammatory) (principal); I25.2 Old myocardial infarction; Z87.442 Personal history of urinary calculi; Z87.891 Personal history of nicotine dependence; Z79.899 Other long term (current) drug therapy; Z79.82 Long term (current) use of aspirin
CPT/HCPCS: 71045; 74176; 80053; 83690; 83880; 84484; 85025; 93005; 93010; 99285-25; C9803; U0003

== ENCOUNTER 2020-12-06 05:58 | Emergency (ER) | payer MEDICARE ==
[~2020-12-06] VITALS: Ht 193 cm; Wt 104.3 kg
[2020-12-06] MEDS ORDERED: PRADAXA150 MG PO (06:11)
[2020-12-06] MEDS ORDERED: FUROSEMIDE40 MG PO (06:12)
[2020-12-06] MEDS ORDERED: POTASSIUM CHLO20 ME2 PO (06:12)
[2020-12-06] MEDS ORDERED: METOPROLOL SUCC50 MG PO (06:12)
== END 2020-12-06 07:32 | disposition home or self-care (01) ==
LOC: ED 05:58
DX: R04.0 Epistaxis (principal); I25.2 Old myocardial infarction; F03.90 Unspecified dementia, unspecified severity, without behavioral disturbance, psychotic disturbance, mood disturbance, and anxiety; Z87.891 Personal history of nicotine dependence; Z79.899 Other long term (current) drug therapy
CPT/HCPCS: 99283

== ENCOUNTER 2021-07-05 22:29 | Emergency (ER) | payer MEDICARE ==
[~2021-07-05] VITALS: Ht 193 cm; Wt 90.7 kg
[~2021-07-05 22:29] MED LIST changes: +FUROSEMIDE40 MG PO; +METOPROLOL SUCC50 MG PO; +POTASSIUM CHLO20 ME2 PO; +PRADAXA150 MG PO
[2021-07-06] MEDS ORDERED: ULTRAM50 MG PO (03:38)
== END 2021-07-06 05:10 | disposition home or self-care (01) ==
LOC: ED 22:29
PROC: 0HQ0XZZ Repair Scalp Skin, External Approach (ICD-10-PCS; principal; 2021-07-05)
DX: S01.01XA Laceration without foreign body of scalp, initial encounter (principal); S06.9X9A Unspecified intracranial injury with loss of consciousness of unspecified duration, initial encounter; I11.0 Hypertensive heart disease with heart failure; I50.9 Heart failure, unspecified; I25.2 Old myocardial infarction; Z87.891 Personal history of nicotine dependence; Z79.899 Other long term (current) drug therapy; W19.XXXA Unspecified fall, initial encounter; W22.8XXA Striking against or struck by other objects, initial encounter
CPT/HCPCS: 12002; 70450; 90471; 90714; 99283-25

== ENCOUNTER 2021-07-19 13:30 | Emergency (ER) | payer MEDICARE ==
[~2021-07-19] VITALS: Ht 193 cm; Wt 86.2 kg
[~2021-07-19 13:30] MED LIST changes: +ULTRAM50 MG PO
--- OUTSIDE RECORDS SUMMARY | 2021-07-19 13:38 | XMS ---
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 Praveen has no Care Guidelines for this patient. Nikki VISIT COUNT (12 MO.) 1 [facility] [address] [facility] [address] [place] TOTAL 5 NOTE: Visits indicate total known visits. ED/UCC VISIT TRACKING (12 MO.) 07/19/2021 13:[address] [facility] [address] [place] TYPE: Emergency COMPLAINT: - DIARRHEA 07/05/2021 22:30 [facility] [place] TYPE: Emergency COMPLAINT: - HEAD LACERATION DIAGNOSES: - Unspecified intracranial injury with loss of consciousness of unspecified duration, initial encounter - Unspecified injury of head, initial encounter - Laceration without foreign body of scalp, initial encounter - Unspecified fall, initial encounter - Striking against or struck by other objects, initial encounter - Hypertensive heart disease with heart failure - Old myocardial infarction - Heart failure, unspecified - Personal history of nicotine dependence - [facility] drug therapy 12/06/2020 05:59 [facility] [place] TYPE: Emergency COMPLAINT: - NOSE BLEED DIAGNOSES: - Personal history of nicotine dependence - Other [place] [facility] (current[facility] drug therapy - Epistaxis - Unspecified dementia without behavioral disturbance - Old myocardial infarction 08/28/2020 20:37 [facility] [place] TYPE: Emergency COMPLAINT: - DIFFICULTY BREATHING DIAGNOSES: - Personal history of urinary calculi - Old myocardial infarction - long term care social worker (current) use of aspirin - Pericardial effusion (noninflammatory) - Personal history of nicotine dependence - 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 - Shortness of breath 08/11/2020 13:32 [facility] DALIA ALVES TYPE: Emergency DIAGNOSES: - Laceration without foreign body of other part of head, initial encounter - Old myocardial infarction - Unspecified dementia without behavioral disturbance - Essential (primary) hypertension INPATIENT VISIT TRACKING (12 MO.) 08/29/2020 02:45 [facility] Caitlyn [place] TYPE: Surgical Services DIAGNOSES: - Alzheimer's disease, unspecified - chest pain - Heart failure, unspecified - Other abnormalities of breathing - Essential (primary) hypertension - Unspecified atrial flutter - Atherosclerotic heart disease of [place] coronary artery without angina pectoris - Other malaise - Dementia in other diseases classified elsewhere without behavioral disturbance - Unspecified dementia without behavioral disturbance - Acute diastolic (congestive) heart failure - Chronic obstructive pulmonary disease, unspecified - Pericardial effusion (noninflammatory) - Supraventricular tachycardia - Elevated white blood cell count, unspecified [email or web address]
[2021-07-19] MEDS ORDERED: TYLENOL325 M1 PO (14:13)
== END 2021-07-19 16:15 | disposition home or self-care (01) ==
LOC: ED 13:30
DX: E86.0 Dehydration (principal); E87.6 Hypokalemia; R19.7 Diarrhea, unspecified; I25.2 Old myocardial infarction; I11.0 Hypertensive heart disease with heart failure; I50.9 Heart failure, unspecified; Z87.891 Personal history of nicotine dependence; Z79.899 Other long term (current) drug therapy
CPT/HCPCS: 36415; 80048; 81001; 85025; 99284; J7040